=== PATIENT | female | born 1980 | race Caucasian/White ===

== ENCOUNTER 2017-04-04 18:28 | Inpatient (IN) | payer MEDICARE, MEDICAID ==
--- NOTE | 2017-04-04 19:20 | ED Physician Chart ---
Chief Complaint/HPI - Patient Information Date Seen:: 04/04/17 Time Seen:: 18:35 Chief Complaint:: cough History of Present Illness:: 36-year-old female, history of mental retardation with cervical palsy, brought in from nursing facility with acute, constant, moderate, nonproductive, since this morning. Has associated bilateral pedal edema. History limited patient is averbal due to underlying severe mental retardation and cerebral palsy History provided by EMS and caregiver Allergies:: Allergies Allergy/AdvReac Type Severity Reaction Status Date / Time No Known Allergies Allergy Verified 07/26/16 15:12 Vitals:: Vital Signs - 8 hr 04/04/17 18:44 Temp 98.6 F HR 103 RR 19 BP 103/37 O2 Sat % 98 Historian:: EMS, Other (telesales agent) Review:: Nurse's Note Reviewed, EMS run form Reviewed, Transfer documents Reviewed Review of Systems - Review of Systems Other: Complete system review otherwise unremarkable except as noted in history of present illness. Family Medical History - Family Member Mother History Unknown: Yes Ethnicity: Non- Living Status: Unknown Hx Family Cancer: No Hx Family Coronary Artery Disease: No Hx Family Congestive Heart Failure: No Hx Family Hypertension: No Hx Family Stroke: No Hx Family Diabetes: No Hx Family Seizures: No Hx Family Dementia: No Hx Family AIDS: No Hx Family HIV: No Hx Family COPD: No Hx Family Hepatitis: No Hx Family Psychiatric Problems: No Hx Family Tuberculosis: No Physical Exam - Physical Examination Other:: INITIAL VITAL SIGNS: Reviewed by me GENERAL: Patient is lying on gurney HEAD: Head is normocephalic. No evidence of trauma. No scalp or facial swelling EYES: No scleral icterus bilaterally ENT: Oropharynx is clear of exudate and erythema NECK: Supple. No meningismus. No masses. No evidence of trauma. No cervical spine bony step-offs or crepitus to palpation RESPIRATORY: No tachypnea. Clear to auscultation bilaterally. CV: Regular rate and rhythm. No murmurs, rubs, or gallops ABDOMEN: Soft, non-distended. No masses BACK: No ecchymoses. No evidence of trauma EXTREMITIES: Contracted otherwise normal to inspection and palpation. No deformity SKIN: Warm and dry. No obvious rash. No jaundice NEUROLOGIC: Face is symmetric. Withdraws to pain in all extremities Labs/Radiology/EKG Results - Lab Results Results: Lab Results 04/04/17 04/04/17 04/04/17 Range/Units 19:22 19:22 19:22 WBC 6.4 D (4.8-10.8) Th/cmm RBC 3.68 L (3.80-5.10) Mil/cmm Hgb 12.3 (11.7-15.5) gm/dL Hct 36.2 D (35.0-45.0) % MCV 98.5 (81-100) fl MCH 33.5 H (27.0-31.0) pg MCHC Differential 34.0 (28.0-36.0) pg RDW 13.5 (11.5-20.0) % Plt Count 146 L (150-400) Th/cmm MPV 7.5 fl Neutrophils % 52.7 (40.0-80.0) % Lymphocytes % 34.9 (20.0-50.0) % Monocytes % 12.0 H (2.0-10.0) % Eosinophils % 0.4 (0.0-5.0) % Basophils % 0.0 (0.0-2.0) % D-Dimer < 100 L (100-400) ng/mL Sodium 134 L (136-145) mEq/L Potassium 5.2 H (3.5-5.1) mEq/L Chloride 103 (98-107) mEq/L Carbon Dioxide 27.3 (21.0-31.0) mEq/L Anion Gap 8.9 (7.0-16.0) BUN 14 (7-25) mg/dL Creatinine 0.4 L (0.6-1.2) mg/dL Est GFR ( Amer) > 60.0 (>90) ml/min Est GFR (Non-Af Amer) > 60.0 ml/min BUN/Creatinine Ratio 35.0 Glucose 97 (70-105) mg/dL Whole Bld Lactic Acid (0.60-1.99) mmol/L Calcium 10.2 (8.6-10.3) mg/dL Total Bilirubin 0.3 (0.3-1.0) mg/dL AST 12 L (13-39) U/L ALT 3 L (7-52) U/L Alkaline Phosphatase 40 (34-104) U/L B-Natriuretic Peptide 14.0 (5.0-100.0) pg/mL Total Protein 6.0 (6.0-8.3) gm/dL Albumin 3.7 (3.7-5.3) gm/dL Globulin 2.3 gm/dL Albumin/Globulin Ratio 1.6 (1.0-1.8) Urine Source Urine Color Urine Clarity (CLEAR) Urine pH Ur Specific [place] (1.005-1.030) Urine Protein (NEGATIVE) mg/dL Urine Glucose (UA) (NEGATIVE) mg/dL Urine Ketones (NEGATIVE) mg/dL Urine Blood (NEGATIVE) Urine Nitrate (NEGATIVE) Urine Bilirubin (NEGATIVE) Urine Urobilinogen (0.2 - 1.0) E.U./dL Ur Leukocyte Esterase (NEGATIVE) Urine RBC (0-5) /hpf Urine WBC (0-5) /hpf Ur Epithelial Cells (FEW) /lpf Amorphous Sediment (NONE SEEN) Urine Bacteria (NONE SEEN) /hpf 04/04/17 04/04/17 04/04/17 Range/Units 19:22 21:10 21:25 WBC (4.8-10.8) Th/cmm RBC (3.80-5.10) Mil/cmm Hgb (11.7-15.5) gm/dL Hct (35.0-45.0) % MCV (81-100) fl MCH (27.0-31.0) pg MCHC Differential (28.0-36.0) pg RDW (11.5-20.0) % Plt Count (150-400) Th/cmm MPV fl Neutrophils % (40.0-80.0) % Lymphocytes % (20.0-50.0) % Monocytes % (2.0-10.0) % Eosinophils % (0.0-5.0) % Basophils % (0.0-2.0) % D-Dimer (100-400) ng/mL Sodium (136-145) mEq/L Potassium (3.5-5.1) mEq/L Chloride (98-107) mEq/L Carbon Dioxide (21.0-31.0) mEq/L Anion Gap (7.0-16.0) BUN (7-25) mg/dL Creatinine (0.6-1.2) mg/dL Est GFR ( Amer) (>90) ml/min Est GFR (Non-Af Amer) ml/min BUN/Creatinine Ratio Glucose (70-105) mg/dL Whole Bld Lactic Acid 2.48 H* 3.10 H* (0.60-1.99) mmol/L Calcium (8.6-10.3) mg/dL Total Bilirubin (0.3-1.0) mg/dL AST (13-39) U/L ALT (7-52) U/L Alkaline Phosphatase (34-104) U/L B-Natriuretic Peptide (5.0-100.0) pg/mL Total Protein (6.0-8.3) gm/dL Albumin (3.7-5.3) gm/dL Globulin gm/dL Albumin/Globulin Ratio (1.0-1.8) Urine Source CATH Urine Color YELLOW Urine Clarity CLEAR (CLEAR) Urine pH 7.0 Ur Specific [place] 1.015 (1.005-1.030) Urine Protein NEGATIVE (NEGATIVE) mg/dL Urine Glucose (UA) NEGATIVE (NEGATIVE) mg/dL Urine Ketones NEGATIVE (NEGATIVE) mg/dL Urine Blood MODERATE H (NEGATIVE) Urine Nitrate NEGATIVE (NEGATIVE) Urine Bilirubin NEGATIVE (NEGATIVE) Urine Urobilinogen 1.0 (0.2 - 1.0) E.U./dL Ur Leukocyte Esterase NEGATIVE (NEGATIVE) Urine RBC 10-25 H (0-5) /hpf Urine WBC 0-2 (0-5) /hpf Ur Epithelial Cells OCCASIONAL (FEW) /lpf Amorphous Sediment FEW URATES (NONE SEEN) Urine Bacteria 1+ H (NONE SEEN) /hpf - Radiology Results Results: Ultrasound venous Doppler bilateral lower extremities Negative for DVT Single AP VIEW Portable Chest X-ray was interpreted independently and contemporaneously by Yamile Nogueira MD: No cardiomegaly Normal mediastinum No lung infiltrates No pneumothorax No soft tissue or bony abnormalities - EKG Interpretations Comments:: 12-lead EKG Interpretation by Yamile Nogueira MD: Normal Sinus Rhythm with ventricular rate of 82 beats per minute Normal axis Normal intervals No acute ST or T wave changes. No obvious STEMI Assessment - Assessment General Assessment: Critical Care Time: 30 minutes Treatments/Evaluations: Close monitoring and treatment of unstable vital signs, cardiorespiratory, and neurologic status, while maintaining tight balance of fluid, respiratory, and cardiac interventions. This time includes discussing the case with the patient and the patient's family. This time does not include all procedures stated elsewhere in this record. This time also includes reviewing old records, labs and radiological studies. This time includes examining and re-examining the patient. Additionally, this time also includes arranging care with admitting and consulting physicians. Excludes all billable procedures: Yes This condition life threatening/high prob of deterioration: Yes ED Septic Shock - . Is Septic Shock (SBP<90, OR Lactate>4 mmol\L) present?: No - <6hrs of presentation: Vital Signs: Vital Signs - 8 hr 04/04/17 18:44 Temp 98.6 F HR 103 RR 19 BP 103/37 O2 Sat % 98 Reassessment (Disposition) - Reassessment Reassessment:: This is a 36-year-old female for underlying MRCP. Brought in with bilateral lower sinus swelling and cough. Labs indicate rising lactic acid levels. Initial lactic acid level greater than 2. Second lactic acid drawn 2 hours later is now 3.1. This is despite the patient receiving IV antibiotics and IV fluids. Chest x-ray is clear. However, she has only been coughing since today. Possibly she is developed some early pneumonia. It is very difficult to gain a clear history given that she is averbal and has underlying mental disability. Given the rising lactic acid levels and uncertain source, discussed her case with the admitting physician. Patient fitted for possible sepsis unknown etiology. Reassessment Condition:: Unchanged - Diagnosis Diagnosis:: Possible sepsis, unknown etiology Elevated lactic acid levels - Patient Disposition Admitted to:: Telemetry Admitting Medical Physician:: Indira Mcdonald Time:: 22:13 Condition at Disposition:: Improved
[2017-04-04 19:31] LABS: % EOSINOPHILS 0.4 % (0.0-5.0); % LYMPHOCYTES 34.9 % (20.0-50.0); % NEUTROPHILS 52.7 % (40.0-80.0); HEMOGLOBIN 12.3 gm/dL (11.7-15.5); MEAN CELL VOLUME 98.5 fl (81-100); MEAN CORPUSCULAR HEMOGLOBIN 33.5 pg (27.0-31.0); MEAN PLATELET VOLUME 7.5 fl; NEUTROPHILE ABSOLUTE 3.4 Th/cmm (1.8-8.0); PLATELET COUNT 146 Th/cmm (150-400); RED BLOOD COUNT 3.68 Mil/cmm (3.80-5.10); RED CELL DISTRIBUTION WIDTH 13.5 % (11.5-20.0)
[2017-04-04 19:36] LABS: WHITE BLOOD COUNT 6.4 Th/cmm (4.8-10.8)
[2017-04-04 19:37] LABS: HEMATOCRIT 36.2 % (35.0-45.0)
[2017-04-04 19:49] LABS: ALB/GLOB RATIO 1.6 (1.0-1.8); ALKALINE PHOSPHATASE 40 U/L (34-104); ANION GAP 8.9 (7.0-16.0); BILIRUBIN,TOTAL 0.3 mg/dL (0.3-1.0); BUN - UREA NITROGEN 14 mg/dL (7-25); CALCIUM SERUM 10.2 mg/dL (8.6-10.3); CARBON DIOXIDE 27.3 mEq/L (21.0-31.0); CHLORIDE 103 mEq/L (98-107); CREATININE - SERUM 0.4 mg/dL (0.6-1.2); GLUCOSE 97 mg/dL (70-105); POTASSIUM SERUM 5.2 mEq/L (3.5-5.1); SGOT 12 U/L (13-39); SGPT/ALT 3 U/L (7-52); SODIUM SERUM 134 mEq/L (136-145)
[2017-04-04] MEDS ORDERED: cefTRIAXone 1 GM in Sodium Chloride 0.9% 50 ML IV ONE (20:12)
[2017-04-04 21:26] LABS: URINE BACTERIA 1+ /hpf (NONE SEEN); URINE BILIRUBIN NEGATIVE (NEGATIVE); URINE BLOOD MODERATE (NEGATIVE); URINE COLOR YELLOW; URINE EPITHELIAL CELLS OCCASIONAL /lpf (FEW); URINE GLUCOSE (UA) NEGATIVE (NEGATIVE); URINE KETONE NEGATIVE (NEGATIVE); URINE PROTEIN NEGATIVE (NEGATIVE); URINE WBC 0-2 /hpf (0-5)
[2017-04-04 21:27] LABS: URINE AMORPHOUS SEDIMENT FEW URATES (NONE SEEN)
[2017-04-04] MEDS ORDERED: Sodium Chloride 0.9% 1,000 ML IV ONE (21:51)
--- NOTE | 2017-04-05 00:39 | Admit Criteria Form ---
Admit Criteria Forms - Admit Criteria Diagnosis: SEPSIS and OTHER FEBRILE ILLNESS, W/O FOCAL INFECTION Clinical Indications for Admission to Inpatient Care ( Place 'X' for any and all applicable criteria): Admission is indicated for ANY ONE of the following (1)(2)(3)(4): [ ] I. Bacteremia [ X ]II. Suspected or identified specific infection requiring hospitalization (eg, meningitis, endocarditis) [ ]III. Hemodynamic instability [ ]IV. Altered mental status [ ]V. Failure or unavailability of outpatient antimicrobial treatment [ ]. Hypoxemia [ ]VII. Seizures [ ]VIII. High-risk febrile neutropenia [ ]IX. Need for parenteral antibiotic in patient who is likely to abuse vascular access device (eg, injection drug user) [A](7) [ ]X. Temperature greater than 104.9 degrees F (40.5 degrees C) (oral) [ ]XI. Inpatient admission required rather than observation care because of ANY ONE of the following: [ ]1) Specific infection identified that is too severe for outpatient treatment or observation care trial [ ]2) Metabolic disorder (eg, hypoglycemia, hyperglycemia, metabolic acidosis) that is severe or persistent [ ]3) Temperature greater than 103.1 degrees F (39.5 degrees C) ( oral) that is not responsive to observation care treatment [ ]4) IV fluid to replace significant ongoing (eg, for over 24 hours) losses (> 3 L/m2 per day) [ ]5) Supplemental oxygen or respiratory treatments for over 24 hours that is performable only in acute inpatient setting [ ]6) Parenteral nutrition regimen need that must be implemented on inpatient basis [ ]7) Strict or protective (eg, laminar flow) isolation [ ]8) Other condition, treatment or monitoring requiring inpatient admission Extended stay beyond goal length of stay may be needed for(1)(3) [ ]a) Sepsis or septic shock(22) [ ]b) Positive blood cultures [ ]c) Insufficient oral intake [ ]d) High-risk febrile neutropenia(29)(30) [ ]e) Continued fever and clinical instability [ ]f) Clinically active comorbid illness (e.g,heart failure, renal failure , diabetes) The original [facility] [employer] content created by Hari Edurado has been revised. The portions of the content which have been revised are identified through the use of italic text or in bold, and [employer] has neither reviewed nor approved the modified material. All other unmodified content is copyright [facility]. Please see references footnoted in the original [facility] edition 2016 Admit Criteria Met?: Yes
[2017-04-05] MEDS: Sodium Chloride 0.9% 1,000 ML IV SCH ×2 (01:30→14:50)
[2017-04-05 05:46] LABS: % BASOPHILS 0.5 % (0.0-2.0); % EOSINOPHILS 0.6 % (0.0-5.0); % LYMPHOCYTES 38.6 % (20.0-50.0); % MONOCYTES 9.1 % (2.0-10.0); % NEUTROPHILS 51.2 % (40.0-80.0); HEMATOCRIT 34.6 % (35.0-45.0); HEMOGLOBIN 11.8 gm/dL (11.7-15.5); MEAN CELL VOLUME 98.5 fl (81-100); MEAN CORPUSCULAR HEMOGLOBIN 33.6 pg (27.0-31.0); MEAN CORPUSCULAR HGB CONC 34.1 pg (28.0-36.0); MEAN PLATELET VOLUME 7.5 fl; NEUTROPHILE ABSOLUTE 3.1 Th/cmm (1.8-8.0); PLATELET COUNT 128 Th/cmm (150-400); RED BLOOD COUNT 3.51 Mil/cmm (3.80-5.10); RED CELL DISTRIBUTION WIDTH 13.5 % (11.5-20.0); WHITE BLOOD COUNT 6.1 Th/cmm (4.8-10.8)
[2017-04-05 06:08] LABS: ANION GAP 9.5 (7.0-16.0); BUN - UREA NITROGEN 11 mg/dL (7-25); BUN/CREATININE RATIO 36.7; CALCIUM SERUM 9.1 mg/dL (8.6-10.3); CARBON DIOXIDE 24.8 mEq/L (21.0-31.0); CHLORIDE 105 mEq/L (98-107); CREATININE - SERUM 0.3 mg/dL (0.6-1.2); GLUCOSE 81 mg/dL (70-105); POTASSIUM SERUM 4.3 mEq/L (3.5-5.1); SODIUM SERUM 135 mEq/L (136-145)
[2017-04-05 06:09] LABS: ALB/GLOB RATIO 1.7 (1.0-1.8); ALKALINE PHOSPHATASE 37 U/L (34-104); BILIRUBIN,TOTAL 0.2 mg/dL (0.3-1.0); CHOLESTEROL 128 mg/dL (<200); MAGNESIUM 1.7 mg/dL (1.9-2.7); SGOT 13 U/L (13-39); SGPT/ALT 3 U/L (7-52); TRIGLYCERIDES 39 mg/dL (<150)
--- NOTE | 2017-04-05 07:50 | Diagnostic Imaging Report ---
CHEST X-RAY: AP view INDICATION: Cough COMPARISON: Chest x-ray 07/30/2016 FINDINGS: Severe scoliosis is noted. Generalized gaseous distended loops of bowel are noted. No focal consolidation or effusions. Heart size is normal. IMPRESSION: No focal consolidation identified. Generalized gaseous distended loops of bowel possibly representing a generalized ileus. Please correlate clinically Severe scoliosis.
--- NOTE | 2017-04-05 07:51 | Diagnostic Imaging Report ---
Bilateral lower extremity DVT study HISTORY: Swelling and pain COMPARISON: None Technique: Longitudinal and transverse sonographic images of the bilateral lower extremity veins were obtained with doppler analysis. FINDINGS: There is normal compressibility, augmentation and phasicity of the bilateral common femoral, superficial femoral, popliteal, and posterior tibial veins. No thrombus is visualized. IMPRESSION: No evidence of thrombus within the bilateral lower extremity veins.
[2017-04-05] MEDS ORDERED: VTE Chemical Prophylaxis Screen/Admission MC PRN (07:58)
[2017-04-05] MEDS ORDERED: Mag Sulfate 2gm/50mL Premix 2 GM/50 ML BAG IV ONE (08:48)
[2017-04-05] MEDS ORDERED: LYSINE 500 MG PO SCH (09:00)
[2017-04-05] MEDS ORDERED: cefTRIAXone 1 GM in Sodium Chloride 0.9% 50 ML IV SCH (21:00)
[2017-04-06] MEDS: Sodium Chloride 0.9% 1,000 ML IV SCH ×2 (03:48→03:49)
[2017-04-06 06:57] LABS: % BASOPHILS 0.3 % (0.0-2.0); % EOSINOPHILS 0.5 % (0.0-5.0); % LYMPHOCYTES 44.5 % (20.0-50.0); % NEUTROPHILS 40.7 % (40.0-80.0); HEMATOCRIT 35.6 % (35.0-45.0); HEMOGLOBIN 11.8 gm/dL (11.7-15.5); MEAN CELL VOLUME 98.2 fl (81-100); MEAN CORPUSCULAR HEMOGLOBIN 32.6 pg (27.0-31.0); MEAN CORPUSCULAR HGB CONC 33.2 pg (28.0-36.0); MEAN PLATELET VOLUME 8.6 fl; PLATELET COUNT 136 Th/cmm (150-400); RED BLOOD COUNT 3.63 Mil/cmm (3.80-5.10); RED CELL DISTRIBUTION WIDTH 13.5 % (11.5-20.0); WHITE BLOOD COUNT 4.9 Th/cmm (4.8-10.8)
[2017-04-06 08:45] LABS: ANION GAP 8.8 (7.0-16.0); BUN - UREA NITROGEN 9 mg/dL (7-25); CALCIUM SERUM 9.1 mg/dL (8.6-10.3); CARBON DIOXIDE 21.8 mEq/L (21.0-31.0); CHLORIDE 110 mEq/L (98-107); CREATININE - SERUM 0.3 mg/dL (0.6-1.2); GLUCOSE 80 mg/dL (70-105); MAGNESIUM 2.1 mg/dL (1.9-2.7); POTASSIUM SERUM 4.6 mEq/L (3.5-5.1); SODIUM SERUM 136 mEq/L (136-145)
--- NOTE | 2017-04-06 10:41 | Diagnostic Imaging Report ---
CHEST X-RAY: AP view INDICATION: Cough COMPARISON: 04/04/2017 FINDINGS: There is no focal consolidation or pleural effusions The heart is normal in size. Severe scoliosis is noted. Gas distended loops of bowel are seen along the upper abdomen IMPRESSION: No focal consolidation identified. Probable chronic ileus Severe scoliosis.
== END 2017-04-06 11:55 | DRG 194 ==
LOC: ER 18:28 → MSI 23:00 → TELE 23:42
PROVIDERS: ADMIT Internal Medicine; ATTEND Internal Medicine
DX: J18.9 Pneumonia, unspecified organism (principal); F72 Severe intellectual disabilities; G80.9 Cerebral palsy, unspecified; G40.909 Epilepsy, unspecified, not intractable, without status epilepticus
CPT/HCPCS: 36415-UA; 71010-TC; 80048-TC; 80053-TC; 80061-TC; 80164-TC; 81001-TC; 83605; 83735-TC; 83880-TC; 84443-TC; 85025-TC; 85379-TC; 93005; 93970-TC-50; J0696; J3475; J7030; Z7502; Z7610

== ENCOUNTER 2017-08-06 09:39 | Inpatient (IN) | payer MEDICARE, MEDICAID ==
[2017-08-06] MEDS ORDERED: Sodium Chloride 0.9% 500 ML IV ONE (09:59)
--- NOTE | 2017-08-06 10:05 | ED Physician Chart ---
ED Chief Complaint/HPI - Patient Information Date Seen:: 08/06/17 Time Seen:: 09:50 Chief Complaint:: Fever History of Present Illness:: onset x 2 days of fever, cough, congestion, A/N/VD; no report of trauma, H/As, Neck pain, C/P, SOB, Abd. Pain, or urinary s/s Allergies:: Allergies Allergy/AdvReac Type Severity Reaction Status Date / Time No Known Allergies Allergy Verified 07/26/16 15:12 Vitals:: Vital Signs - 8 hr 08/06/17 09:48 Temp 101.7 F HR 150 RR 30 BP 136/69 O2 Sat % 92 ED Review of Systems - Review of Systems General/Constitutional: Fever, No chills, No weight loss, No weakness, No diaphoresis, No edema, No loss of appetite Skin: No skin lesions, No rash, No bruising Head: No headache, No light-headedness Eyes: No loss of vision, No pain, No diplopia ENT: No earache, Nasal drainage, No sore throat, No tinnitus Neck: No neck pain, No swelling, No thyromegaly, No stiffness, No mass noted Cardio Vascular: No chest pain, No palpitations, No PND, No orthopnea, No edema Pulmonary: No SOB, Cough, No sputum, No wheezing GI: Nausea, Vomiting, Diarrhea, No pain, No melena, No hematochezia, No constipation, No hematemesis G/U: No dysuria, No frequency, No hematuria Business Relationship Manager: No vaginal discharge, No abnormal vaginal bleed, No contraction Musculoskeletal: No bone or joint pain, No back pain, No muscle pain Endocrine: No polyuria, No polydipsia Psychiatric: No prior psych history, No depression, No anxiety, No suicidal ideation, No homicidal ideation, No auditory hallucination, No visual hallucination Hematopoietic: No bruising, No lymphadenopathy Allergic/Immuno: No urticaria, No angioedema Neurological: No syncope, No focal symptoms, No weakness, No paresthesia, No headache, No seizure, No dizziness, No confusion, No vertigo ED Past Medical History - Past Medical History Obtainable: Yes Past Medical History: Seizures, Dementia, Other (MR) Family History: Diabetes Melitus, HTN Social History: Non Smoker, No Alcohol, No Drug Use, Single, Care Facility Surgical History: None Psychiatricy History: Dementia Family Medical History - Family Member Mother History Unknown: Yes Ethnicity: Non- Living Status: Unknown Hx Family Cancer: No Hx Family Coronary Artery Disease: No Hx Family Congestive Heart Failure: No Hx Family Hypertension: No Hx Family Stroke: No Hx Family Diabetes: No Hx Family Seizures: No Hx Family Dementia: No Hx Family AIDS: No Hx Family HIV: No Hx Family COPD: No Hx Family Hepatitis: No Hx Family Psychiatric Problems: No Hx Family Tuberculosis: No ED Physical Exam - Physical Examination General/Constitutional: Awake, Well-developed, well-nourished, Alert, No distress, GCS 15, Non-toxic appearing, Ambulatory Head: Atraumatic Eyes: Lids, conjuctiva normal, PERRL, EOMI Skin: Nl inspection, No rash, No skin lesions, No ecchymosis, No lymphadenopathy Other Skin comments:: Poor Turgor with dry mucous membranes ENMT: External ears, nose nl, Nasal exam nl, Lips, teeth, gums nl Neck: Nontender, Full ROM w/o pain, No JVD, No nuchal rigidity, No bruit, No mass, No stridor Respiratory: Nl effort/Exclusion Other Respiratory comments:: Lungs: + Rales Cardio Vascular: RRR, No murmur, gallop, rubs, NL S1 S2 GI: No tenderness/rebounding/guarding, No organomegaly, No hernia, Normal BS's, Nondistended, No mass/bruits, No McBurney tenderness : No CVA tenderness Extremities: No tenderness or effusion, Full ROM, normal strength in all extremities, No edema, Normal digits & nails Neuro/Psych: Alert/oriented, DTR's symmetric, Normal sensory exam, Normal motor strength, Judgement/insight normal, Mood normal, Normal gait, No focal deficits Other Neuro/Psych comments:: pt is nonverbal Misc: Normal back, No paraspinal tenderness ED Labs/Radiology/EKG Results - Lab Results Comments:: Na+: 131; U/A: + Pyuria - Radiology Results Results: + Infiltrate - EKG Interpretations Rate & Rhythm: 148; ST Comments:: non-specific st-t changes ED Septic Shock - . Is Septic Shock (SBP<90, OR Lactate>4 mmol\L) present?: No - <6hrs of presentation: Vital Signs: Vital Signs - 8 hr 08/06/17 09:48 Temp 101.7 F HR 150 RR 30 BP 136/69 O2 Sat % 92 ED Reassessment (Disposition) - Reassessment Reassessment Condition:: Improved - Diagnosis Diagnosis:: PNA; UTI; Sepsis Dehydration; Tachycardia - Aftercare/Follow up Instructions Aftercare/Follow-Up Instructions:: Counseled pt regarding lab results/diagnosis & need follow up, Counseled pt & family regarding lab results/diagnosis & need follow up - Patient Disposition Discharge/Transfer:: Acute Care w/in this hosp Accepting Physician:: Dr. Mcdonald Time Called:: 1100 Time Responded:: 11:00 Admitted to:: Telemetry Spoke to:: Dr. Mcdonald Admitting Medical Physician:: Dr. Mcdonald Condition at Disposition:: Stable, Improved
[2017-08-06 10:25] LABS: HEMOGLOBIN 13.4 gm/dL (12-16); MEAN CELL VOLUME 95.7 fl (81-100); MEAN CORPUSCULAR HEMOGLOBIN 32.8 pg (27.0-31.0); MEAN CORPUSCULAR HGB CONC 34.3 pg (28.0-36.0); PLATELET COUNT 128 Th/cmm (150-400); RED BLOOD COUNT 4.07 Mil/cmm (3.80-5.10); RED CELL DISTRIBUTION WIDTH 13.2 % (11.5-20.0); WHITE BLOOD COUNT 8.2 Th/cmm (4.8-10.8)
[2017-08-06 10:28] LABS: MANUAL DIFF REQUIRED? YES
[2017-08-06] MEDS ORDERED: cefTRIAXone 1 GM in Sodium Chloride 0.9% 50 ML IV ONE (10:30)
[2017-08-06 10:34] LABS: URINE MICROSCOPIC INDICATED? YES; URINE SOURCE MIDSTREAM
[2017-08-06 10:39] LABS: INR 1.15 (0.5-1.4); PROTHROMBIN TIME (TEST) 12.1 SECONDS (9.5-11.5)
[2017-08-06 10:40] LABS: URINE BILIRUBIN NEGATIVE (NEGATIVE); URINE BLOOD SMALL (NEGATIVE); URINE GLUCOSE (UA) NEGATIVE (NEGATIVE); URINE KETONE TRACE mg/dL (NEGATIVE); URINE LEUKOCYTE ESTERASE NEGATIVE (NEGATIVE); URINE NITRATE NEGATIVE (NEGATIVE); URINE PROTEIN 100 mg/dL (NEGATIVE)
[2017-08-06 10:44] LABS: ALB/GLOB RATIO 1.5 (1.0-1.8); ALBUMIN 3.5 gm/dL (3.7-5.3); ALKALINE PHOSPHATASE 34 U/L (34-104); ANION GAP 11.7 (7.0-16.0); BILIRUBIN,TOTAL 0.3 mg/dL (0.3-1.0); BUN - UREA NITROGEN 12 mg/dL (7-25); CALCIUM SERUM 9.2 mg/dL (8.6-10.3); CARBON DIOXIDE 24.2 mEq/L (21.0-31.0); CHLORIDE 99 mEq/L (98-107); CREATININE - SERUM 0.4 mg/dL (0.6-1.2); CREATININE KINASE 15 U/L (30-223); GFR AFRICAN-AMERICAN > 60.0 ml/min (>90); GFR NON AFRICAN-AMERICAN > 60.0 ml/min; GLUCOSE 99 mg/dL (70-105); POTASSIUM SERUM 3.9 mEq/L (3.5-5.1); SGOT 12 U/L (13-39); SGPT/ALT 8 U/L (7-52); SODIUM SERUM 131 mEq/L (136-145); TOTAL PROTEIN,SERUM 5.9 gm/dL (6.0-8.3)
[2017-08-06 10:45] LABS: AMYLASE SERUM 56 U/L (29-103); LIPASE 18 U/L (11-82)
[2017-08-06 10:50] LABS: TROP I < 0.01 ng/mL (0.01-0.05)
[2017-08-06 10:52] LABS: URINE CLARITY CLEAR (CLEAR); URINE COLOR YELLOW
[2017-08-06 10:58] LABS: URINE EPITHELIAL CELLS MODERATE /lpf (FEW); URINE WBC 0-2 /hpf (0-5)
[2017-08-06 10:59] LABS: URINE BACTERIA 1+ /hpf (NONE SEEN)
[2017-08-06 11:06] LABS: BAND NEUTROPHILE 28 % (0-10); LYMPHOCYTE 7 % (20-50); METAMYELOCYTE 2 % (0-0); MONOCYTE 18 % (2-10); NEUTROPHILS 45 % (40-80); TOTAL CELLS COUNTED 100
[2017-08-06 11:07] LABS: ANISOCYTOSIS 1+; PLATELET ESTIMATE SLIGHT DECREASED (NORMAL)
[2017-08-06] MEDS ORDERED: Albuterol/Ipratropium Neb 3 ML AERS HHN ONE (12:07)
[2017-08-06] MEDS: Albuterol/Ipratropium Neb 3 ML AERS HHN SCH ×4 (12:09→23:20)
[2017-08-06] MEDS ORDERED: Sodium Chloride 0.9% 1,000 ML IV ONE (12:48)
[2017-08-06] MEDS: cefTRIAXone 1 GM in Sodium Chloride 0.9% 50 ML IV SCH (13:02)
[2017-08-06] MEDS: Azithromycin 500 MG in Sodium Chloride 0.9% 250 ML IV SCH (15:31)
[2017-08-06] MEDS: Sodium Chloride 0.9% 1,000 ML IV SCH (17:15)
--- NOTE | 2017-08-06 23:27 | History & Physical ---
ADMIT DATE: 08/06/2017 CHIEF COMPLAINT: The patient came in because of cough. HISTORY OF PRESENT ILLNESS: This is a 36-year-old female with past medical history of epilepsy, who came in because of cough and congestion. Two days prior to admission, the patient developed cough and congestion. A few hours prior to admission, she continued to have fever. Thus, she was brought to the Emergency Room. Her temperature was 101.7, in sinus tachycardic. Lactic acid was 2.43, but her white count was 8.2. Chest x-ray revealed infiltrates. Cultures were obtained and she was started on Rocephin and Flomax. She has no nausea and vomiting as well as diarrhea. PAST MEDICAL HISTORY: 1. Epilepsy. 2. Dementia with behavioral disturbance. 3. Intellectual disability. MEDICATIONS: She is currently on acetaminophen, albuterol/ipratropium, azithromycin, ceftriaxone, vancomycin. ALLERGIES: No known drug allergies. SOCIAL AND FAMILY HISTORY: I was not able to obtain directly from the patient because she is nonverbal. REVIEW OF SYSTEMS: Again, I was not able to decipher from the patient. PHYSICAL EXAMINATION: GENERAL: The patient is stuporous, but arousable, not in any distress. VITAL SIGNS: Her blood pressure is 122/68, pulse is 120, temperature 99.8 degrees. SKIN: Poor turgor, warm. No rash, no jaundice appreciated. HEENT: Head: Normocephalic, atraumatic. Eyes: Unable to assess her extraocular muscles. Pupils are equal, round, reactive to light and accommodate. Anicteric sclerae. Pale conjunctivae. Nose: Midline nasal septum. Mouth: Dry mucosa. Adequate dentition. NECK: Supple. No adenopathy. No thyromegaly. No bruits. Trachea palpated in the midline. CHEST AND CARDIOVASCULAR: S1, S2. No rub, murmur nor gallop appreciated. Point of maximal impulse in fifth intercostal space, left midclavicular line. No abdominal or femoral bruits appreciated. LUNGS: Equal expansion. No use of accessory muscles. No supraclavicular retraction. Scattered rhonchi. Few rales, but no wheezes appreciated. BREASTS: Symmetrical without any discharge. ABDOMEN: Flat, soft. Positive for bowel sounds. No bruits, either diastolic or systolic. RECTAL: Deferred. GENITOURINARY: Normal-appearing female genitalia. MUSCULOSKELETAL: No effusions present in her joints, but unable to assess her range of motion. EXTREMITIES: She has contracted upper extremity as well as lower extremity. She also has bilateral foot drop. There is no edema. No cyanosis appreciated. She has an adequate femoral, but unable to fully appreciate popliteal and dorsalis pedis pulses due to her contractures. NEUROLOGIC: The patient remains stuporous, so I was unable to pursue further my neuro exam. LABORATORY DATA: White count 8.2, hemoglobin 13.4, hematocrit 39, platelets 128, polys 45%. Sodium 131, potassium 3.9, chloride 99, bicarbonate 24, BUN 12, creatinine 0.4, glucose 99. Lactic acid 2.46. Troponin less than 0.01. Albumin 3.5. IMPRESSION: 1. Fever with cough and congestion, possible community-acquired pneumonia. 2. Sinus tachycardic secondary to sepsis. 3. Epilepsy. 4. Dementia with behavioral disturbance. 5. Intellectual disability. PLAN: 1. IV fluids. 2. Follow up cultures. 3. Continue with Rocephin and Zithromax. 4. Add vancomycin. 5. Continue to monitor for any febrile episodes and use antipyretics. JOB# [id number]
[2017-08-07] MEDS: Albuterol/Ipratropium Neb 3 ML AERS HHN SCH ×6 (03:15→23:00)
[2017-08-07] MEDS: Sodium Chloride 0.9% 1,000 ML IV SCH (05:13)
[2017-08-07 05:18] LABS: % EOSINOPHILS 0.1 % (0.0-5.0); % LYMPHOCYTES 16.7 % (20.0-50.0); % MONOCYTES 12.1 % (2.0-10.0); % NEUTROPHILS 71.1 % (40.0-80.0); LYMPHOCYTE ABSOLUTE 1.6 Th/cmm (1.5-3.0); MEAN CELL VOLUME 97.9 fl (81-100); MEAN CORPUSCULAR HEMOGLOBIN 33.2 pg (27.0-31.0); MEAN CORPUSCULAR HGB CONC 33.9 pg (28.0-36.0); MEAN PLATELET VOLUME 8.5 fl; MONOCYTE ABSOLUTE 1.1 Th/cmm (0.3-1.0); NEUTROPHILE ABSOLUTE 6.8 Th/cmm (1.8-8.0); RED CELL DISTRIBUTION WIDTH 12.7 % (11.5-20.0); WHITE BLOOD COUNT 9.5 Th/cmm (4.8-10.8)
[2017-08-07 05:34] LABS: HEMATOCRIT 31.3 % (41.0-60); HEMOGLOBIN 10.6 gm/dL (12-16)
[2017-08-07 05:35] LABS: PLATELET COUNT 99 Th/cmm (150-400)
[2017-08-07 05:43] LABS: ANION GAP 9.7 (7.0-16.0); BUN - UREA NITROGEN 5 mg/dL (7-25); CALCIUM SERUM 8.4 mg/dL (8.6-10.3); CHLORIDE 108 mEq/L (98-107); CREATININE - SERUM 0.3 mg/dL (0.6-1.2); GFR AFRICAN-AMERICAN > 60.0 ml/min (>90); GFR NON AFRICAN-AMERICAN > 60.0 ml/min; GLUCOSE 89 mg/dL (70-105); MAGNESIUM 1.5 mg/dL (1.9-2.7); PHOSPHOROUS 1.9 mg/dL (2.5-5.0); POTASSIUM SERUM 3.7 mEq/L (3.5-5.1); SODIUM SERUM 138 mEq/L (136-145)
[2017-08-07] MEDS ORDERED: Potassium Phosphate 30 MMOLE in Sodium Chloride 0.9% 250 ML IV ONE (08:57)
[2017-08-07] MEDS ORDERED: Mag Sulfate 2gm/50mL Premix 2 GM/50 ML BAG IV ONE (09:06)
--- NOTE | 2017-08-07 10:04 | Diagnostic Imaging Report ---
Portable chest x-ray HISTORY: Cough, fever There is a severe scoliosis of the thoracic spine convexity to the right. No focal bony processes. Heart size difficult to assess. IMPRESSION: 1. No acute focal pulmonary processes 2. Severe scoliosis
[2017-08-07] MEDS: cefTRIAXone 1 GM in Sodium Chloride 0.9% 50 ML IV SCH (12:52)
[2017-08-07] MEDS: Azithromycin 500 MG in Sodium Chloride 0.9% 250 ML IV SCH (13:49)
[2017-08-08] MEDS: Sodium Chloride 0.9% 1,000 ML IV SCH ×2 (01:24→11:55)
[2017-08-08] MEDS: Albuterol/Ipratropium Neb 3 ML AERS HHN SCH ×6 (04:00→23:01)
[2017-08-08 06:40] LABS: MAGNESIUM 1.9 mg/dL (1.9-2.7); PHOSPHOROUS 2.6 mg/dL (2.5-5.0)
[2017-08-08] MEDS: cefTRIAXone 1 GM in Sodium Chloride 0.9% 50 ML IV SCH (12:19)
[2017-08-08] MEDS: Azithromycin 500 MG in Sodium Chloride 0.9% 250 ML IV SCH (13:08)
[2017-08-09] MEDS: Albuterol/Ipratropium Neb 3 ML AERS HHN SCH ×3 (02:40→11:31)
[2017-08-09] MEDS: Sodium Chloride 0.9% 1,000 ML IV SCH (03:16)
[2017-08-09 06:18] LABS: % BASOPHILS 0.3 % (0.0-2.0); % LYMPHOCYTES 38.1 % (20.0-50.0); % MONOCYTES 14.9 % (2.0-10.0); % NEUTROPHILS 44.7 % (40.0-80.0); EOSINOPHILE ABSOLUTE 0.1 Th/cmm (0.1-0.4); HEMATOCRIT 31.7 % (41.0-60); HEMOGLOBIN 10.7 gm/dL (12-16); LYMPHOCYTE ABSOLUTE 2.1 Th/cmm (1.5-3.0); MEAN CELL VOLUME 97.1 fl (81-100); MEAN CORPUSCULAR HEMOGLOBIN 32.8 pg (27.0-31.0); MEAN CORPUSCULAR HGB CONC 33.8 pg (28.0-36.0); MEAN PLATELET VOLUME 8.2 fl; MONOCYTE ABSOLUTE 0.8 Th/cmm (0.3-1.0); NEUTROPHILE ABSOLUTE 2.4 Th/cmm (1.8-8.0); RED BLOOD COUNT 3.26 Mil/cmm (3.80-5.10); RED CELL DISTRIBUTION WIDTH 13.2 % (11.5-20.0)
[2017-08-09 06:25] LABS: PLATELET COUNT 153 Th/cmm (150-400); WHITE BLOOD COUNT 5.4 Th/cmm (4.8-10.8)
[2017-08-09 06:32] LABS: ANION GAP 8.9 (7.0-16.0); BUN - UREA NITROGEN 4 mg/dL (7-25); CALCIUM SERUM 9.2 mg/dL (8.6-10.3); CARBON DIOXIDE 27.8 mEq/L (21.0-31.0); CHLORIDE 105 mEq/L (98-107); CREATININE - SERUM 0.3 mg/dL (0.6-1.2); GFR AFRICAN-AMERICAN > 60.0 ml/min (>90); GFR NON AFRICAN-AMERICAN > 60.0 ml/min; GLUCOSE 83 mg/dL (70-105); MAGNESIUM 1.7 mg/dL (1.9-2.7); POTASSIUM SERUM 4.7 mEq/L (3.5-5.1); SODIUM SERUM 137 mEq/L (136-145)
--- NOTE | 2017-08-09 09:13 | Diagnostic Imaging Report ---
Portable chest x-ray HISTORY: Shortness of breath Compared with prior exam of July 29, 2017, no focal pulmonary processes. Severe scoliosis again noted. IMPRESSION: 1. No focal pulmonary processes
[2017-08-09] MEDS: cefTRIAXone 1 GM in Sodium Chloride 0.9% 50 ML IV SCH (11:53)
[2017-08-09] MEDS: Azithromycin 500 MG in Sodium Chloride 0.9% 250 ML IV SCH (12:31)
--- NOTE | 2017-08-09 23:13 | Discharge Summary ---
DATE OF DISCHARGE: 08/09/2017 ADMITTING DIAGNOSES: Fever/rule out sepsis, tachycardia, hyponatremia, elevated lactic acid level, cough/congestion, rule out bronchitis versus early pneumonia. SECONDARY DIAGNOSES: History of dementia with behavioral disturbance, intellectual disability/mental retardation, history of epilepsy. DISCHARGE DIAGNOSES: 1. Fever, rule out sepsis. Sepsis workup negative. Likely 2ry to bronchitis. 2. Sinus tachycardia, secondary to above-resolved. 3. Hyponatremia, resolved. 4. Elevated lactic acid, resolved. 5. Likely bronchitis versus early pneumonia-clinically improved. CONSULTANTS: There are no consultants used during this admission. MAJOR PROCEDURES: There were no major procedures done during this admission. BRIEF HOSPITAL COURSE: A 36-year-old female who presented from an extended care facility with 2-day history of congestive cough, tachycardia, and fevers up to 101.7. In the ER, she was noted to have a lactic acid of 2.43 and she was also noted to have tachycardia from 120-150. Other pertinent findings included sodium 131 and UA showing some red blood cells, but negative for leukocyte esterase and nitrites. A chest x-ray showed no focal pulmonary processes. She was admitted to the telemetry rouse, placed on IV fluids, empiric IV antibiotics (azithromycin and Rocephin), and pulmonary toilet. She was pancultured with results being negative. She did have Staph aureus on the nares. By hospital day #2, her heart rate had improved to a level of 90s to low 100s and her fevers had improved. Her labs remained basically stable throughout her hospital stay with improvement of her low sodium to a level of 138 by 08/07/2017 and her lactic acid level to 1.03 by 08/07/2017. Initially this level was noted to be 2.43. A repeat x-ray done on 08/06/2017 showed no acute pulmonary processes. DISCHARGE MEDICATIONS: Tylenol 325 per rectum q. 4 hours p.r.n. for fever or pain, DuoNeb q. 4 hours while awake and p.r.n., Levaquin 500 mg p.o. every day x7 days, Mucinex 600 q.12h. p.r.n. for congestion, Bactroban ointment b.i.d. x 5 more days, Depakote 500 mg b.i.d., Lamictal 75 every day, lysine 500 mg b.i.d., Megace 10 mL b.i.d. and multivitamins every day. CONDITION ON DISCHARGE: Stable. DISPOSITION: The patient was discharged back to [facility] under the care of Dr. Serrano. JOB# [id number] MTDD
== END 2017-08-09 13:46 | disposition home or self-care (01) | DRG 202 ==
LOC: ER 09:39 → TELE 11:13 → MSI 08-07 12:16 → TELE 08-07 12:24
PROVIDERS: ADMIT Internal Medicine; ATTEND Internal Medicine
DX: J40 Bronchitis, not specified as acute or chronic (principal); J18.9 Pneumonia, unspecified organism; F03.91 Unspecified dementia, unspecified severity, with behavioral disturbance; E87.1 Hypo-osmolality and hyponatremia; E44.1 Mild protein-calorie malnutrition; N39.0 Urinary tract infection, site not specified; B95.62 Methicillin resistant Staphylococcus aureus infection as the cause of diseases classified elsewhere; G40.909 Epilepsy, unspecified, not intractable, without status epilepticus; F79 Unspecified intellectual disabilities; R00.0 Tachycardia, unspecified; E86.0 Dehydration; Z83.3 Family history of diabetes mellitus; Z82.49 Family history of ischemic heart disease and other diseases of the circulatory system
CPT/HCPCS: 36415-UA; 71010-TC; 80048-TC; 80053-TC; 81001-TC; 81025-TC; 82150-TC; 82550-TC; 82948-90; 83605; 83690-TC; 83735-TC; 84100-TC; 84484-TC; 84703-TC; 85007-TC; 85025-TC; 85027-TC; 85610-TC; 85730-TC; 87070; 87086-90; 90799; 93005; 94640; 94760; J0456; J0696; J3370; J3475; J7030; Z7610

== ENCOUNTER 2017-11-02 12:09 | Inpatient (IN) | payer MEDICARE, MEDICAID ==
[2017-11-02] MEDS ORDERED: Sodium Chloride 0.9% 500 ML IV ONE (12:34)
[2017-11-02 13:11] LABS: % LYMPHOCYTES 3.5 % (20.0-50.0); % MONOCYTES 12.6 % (2.0-10.0); % NEUTROPHILS 83.9 % (40.0-80.0); HEMATOCRIT 36.2 % (41.0-60); HEMOGLOBIN 12.4 gm/dL (12-16); LYMPHOCYTE ABSOLUTE 0.5 Th/cmm (1.5-3.0); MEAN CELL VOLUME 95.2 fl (81-100); MEAN CORPUSCULAR HEMOGLOBIN 32.5 pg (27.0-31.0); MEAN CORPUSCULAR HGB CONC 34.2 pg (28.0-36.0); MEAN PLATELET VOLUME 8.1 fl; MONOCYTE ABSOLUTE 1.8 Th/cmm (0.3-1.0); NEUTROPHILE ABSOLUTE 11.8 Th/cmm (1.8-8.0); PLATELET COUNT 160 Th/cmm (150-400); RED CELL DISTRIBUTION WIDTH 14.1 % (11.5-20.0)
[2017-11-02 13:17] LABS: WHITE BLOOD COUNT 14.1 Th/cmm (4.8-10.8)
[2017-11-02] MEDS ORDERED: cefTRIAXone 1 GM in Sodium Chloride 0.9% 50 ML IV ONE (13:20)
[2017-11-02] MEDS ORDERED: Azithromycin 500 MG in Sodium Chloride 0.9% 250 ML IV ONE (13:20)
[2017-11-02 13:25] LABS: INR 1.15 (0.5-1.4); PROTHROMBIN TIME (TEST) 12.1 SECONDS (9.5-11.5)
[2017-11-02 13:37] LABS: ALB/GLOB RATIO 1.8 (1.0-1.8); ALBUMIN 3.7 gm/dL (3.7-5.3); ALKALINE PHOSPHATASE 41 U/L (34-104); ANION GAP 12.1 (7.0-16.0); BILIRUBIN,TOTAL 0.2 mg/dL (0.3-1.0); BUN - UREA NITROGEN 18 mg/dL (7-25); CALCIUM SERUM 9.2 mg/dL (8.6-10.3); CARBON DIOXIDE 23.8 mEq/L (21.0-31.0); CHLORIDE 100 mEq/L (98-107); CREATININE - SERUM 0.4 mg/dL (0.6-1.2); CREATININE KINASE 20 U/L (30-223); GFR AFRICAN-AMERICAN > 60.0 ml/min (>90); GFR NON AFRICAN-AMERICAN > 60.0 ml/min; GLUCOSE 107 mg/dL (70-105); POTASSIUM SERUM 3.9 mEq/L (3.5-5.1); SGOT 18 U/L (13-39); SGPT/ALT 10 U/L (7-52); SODIUM SERUM 132 mEq/L (136-145); TOTAL PROTEIN,SERUM 5.8 gm/dL (6.0-8.3)
[2017-11-02 13:40] LABS: TROP I < 0.01 ng/mL (0.01-0.05)
[2017-11-02 13:49] LABS: URINE MICROSCOPIC INDICATED? YES; URINE SOURCE MIDSTREAM
[2017-11-02 13:51] LABS: URINE BILIRUBIN NEGATIVE (NEGATIVE); URINE BLOOD MODERATE (NEGATIVE); URINE GLUCOSE (UA) NEGATIVE (NEGATIVE); URINE KETONE NEGATIVE (NEGATIVE); URINE LEUKOCYTE ESTERASE NEGATIVE (NEGATIVE); URINE NITRATE NEGATIVE (NEGATIVE); URINE PROTEIN TRACE mg/dL (NEGATIVE); URINE UROBILINOGEN 0.2 E.U./dL (0.2 - 1.0)
[2017-11-02 13:52] LABS: URINE CLARITY CLEAR (CLEAR); URINE COLOR YELLOW
[2017-11-02 13:58] LABS: URINE BACTERIA 2+ /hpf (NONE SEEN); URINE EPITHELIAL CELLS MODERATE /lpf (FEW)
--- NOTE | 2017-11-02 14:49 | ED Physician Chart ---
ED Chief Complaint/HPI - Patient Information Date Seen:: 11/02/17 Time Seen:: 12:35 Chief Complaint:: Fever History of Present Illness:: onset x 3 days of fever, cough, congestion, AMS, ALOC, and weakness; no report of trauma, H/As, S/T, neck pain, C/P, SOB, Abd. Pain, A/N/V/D/C, chills, or urinary s/s Allergies:: Allergies Allergy/AdvReac Type Severity Reaction Status Date / Time No Known Allergies Allergy Verified 09/11/17 18:10 Vitals:: Vital Signs - 8 hr 11/02/17 12:37 Temp 101 F HR 125 RR 16 BP 115/61 O2 Sat % 94 Historian:: Patient, EMS Review:: Nurse's Note Reviewed, EMS run form Reviewed ED Review of Systems - Review of Systems General/Constitutional: Fever, No chills, No weight loss, No weakness, No diaphoresis, No edema, No loss of appetite Skin: No skin lesions, No rash, No bruising Head: No headache, No light-headedness Eyes: No loss of vision, No pain, No diplopia ENT: No earache, Nasal drainage, No sore throat, No tinnitus Neck: No neck pain, No swelling, No thyromegaly, No stiffness, No mass noted Cardio Vascular: No chest pain, No palpitations, No PND, No orthopnea, No edema Pulmonary: No SOB, Cough, No sputum, No wheezing GI: No nausea, No vomiting, No diarrhea, No pain, No melena, No hematochezia, No constipation, No hematemesis G/U: No dysuria, No frequency, No hematuria, No nacturia Heel Lift Gouger: No vaginal discharge, No abnormal vaginal bleed, No contraction Musculoskeletal: No bone or joint pain, No back pain, No muscle pain Endocrine: No polyuria, No polydipsia Psychiatric: No prior psych history, No depression, No anxiety, No suicidal ideation, No homicidal ideation, No auditory hallucination, No visual hallucination Hematopoietic: No bruising, No lymphadenopathy Allergic/Immuno: No urticaria, No angioedema Neurological: No syncope, Focal symptoms, Weakness, No paresthesia, No headache , No seizure, No dizziness, Confusion, No vertigo ED Past Medical History - Past Medical History Obtainable: Yes Past Medical History: CVA/TIA, Dementia, Other (Quadripareasis) Family History: Diabetes Melitus, HTN Social History: Non Smoker, No Alcohol, No Drug Use, Single, Care Facility Surgical History: None Psychiatricy History: Dementia Medication: Reviewed Family Medical History - Family Member Mother History Unknown: Yes Ethnicity: Non- Living Status: Unknown Hx Family Cancer: No Hx Family Coronary Artery Disease: No Hx Family Congestive Heart Failure: No Hx Family Hypertension: No Hx Family Stroke: No Hx Family Diabetes: No Hx Family Seizures: No Hx Family Dementia: No Hx Family AIDS: No Hx Family HIV: No Hx Family COPD: No Hx Family Hepatitis: No Hx Family Psychiatric Problems: No Hx Family Tuberculosis: No ED Physical Exam - Physical Examination General/Constitutional: Awake, Well-developed, well-nourished, Alert, No distress, GCS 15, Non-toxic appearing, Ambulatory Head: Atraumatic Eyes: Lids, conjuctiva normal, PERRL, EOMI Skin: Nl inspection, No rash, No skin lesions, No ecchymosis, Well hydrated, No lymphadenopathy ENMT: External ears, nose nl, TM canals nl, Nasal exam nl, Lips, teeth, gums nl , Oropharynx nl, Tonsils nl Neck: Nontender, Full ROM w/o pain, No JVD, No nuchal rigidity, No bruit, No mass, No stridor Respiratory: Nl effort/Exclusion Other Respiratory comments:: Lungs: + rales and Rhonchi Cardio Vascular: RRR, No murmur, gallop, rubs, NL S1 S2, Carotid/Femoral/Distal pulses equal bilaterally GI: No tenderness/rebounding/guarding, No organomegaly, No hernia, Normal BS's, Nondistended, No mass/bruits, No McBurney tenderness : No CVA tenderness Extremities: No tenderness or effusion, Full ROM, normal strength in all extremities, No edema, Normal digits & nails Neuro/Psych: Alert/oriented, DTR's symmetric, Normal sensory exam, Normal motor strength, Judgement/insight normal, Mood normal, Normal gait Other Neuro/Psych comments:: + quadiplegia Misc: Normal back, No paraspinal tenderness ED Labs/Radiology/EKG Results - Lab Results Results: Laboratory Tests 11/02/17 11/02/17 11/02/17 12:50 12:50 12:50 WBC 14.1 H D RBC 3.80 Hgb 12.4 Hct 36.2 L MCV 95.2 MCH 32.5 H MCHC Differential 34.2 RDW 14.1 Plt Count 160 D MPV 8.1 Neutrophils % 83.9 H Lymphocytes % 3.5 L Monocytes % 12.6 H Eosinophils % 0.0 Basophils % 0.0 PT 12.1 H INR 1.15 PTT (Actin FS) 30.5 Sodium 132 L Potassium 3.9 Chloride 100 Carbon Dioxide 23.8 Anion Gap 12.1 BUN 18 Creatinine 0.4 L Est GFR ( Amer) > 60.0 Est GFR (Non-Af Amer) > 60.0 BUN/Creatinine Ratio 45.0 Glucose 107 H Whole Bld Lactic Acid Calcium 9.2 Total Bilirubin 0.2 L AST 18 ALT 10 Alkaline Phosphatase 41 Creatine Kinase 20 L Troponin I Total Protein 5.8 L Albumin 3.7 Globulin 2.1 Albumin/Globulin Ratio 1.8 Serum , Qual Urine Source Urine Color Urine Clarity Urine pH Ur Specific [place] Urine Protein Urine Glucose (UA) Urine Ketones Urine Blood Urine Nitrate Urine Bilirubin Urine Urobilinogen Ur Leukocyte Esterase Urine RBC Urine WBC Ur Epithelial Cells Urine Bacteria Valproic Acid 11/02/17 11/02/17 11/02/17 12:50 12:50 12:50 WBC RBC Hgb Hct MCV MCH MCHC Differential RDW Plt Count MPV Neutrophils % Lymphocytes % Monocytes % Eosinophils % Basophils % PT INR PTT (Actin FS) Sodium Potassium Chloride Carbon Dioxide Anion Gap BUN Creatinine Est GFR ( Amer) Est GFR (Non-Af Amer) BUN/Creatinine Ratio Glucose Whole Bld Lactic Acid 2.43 H* Calcium Total Bilirubin AST ALT Alkaline Phosphatase Creatine Kinase Troponin I < 0.01 L Total Protein Albumin Globulin Albumin/Globulin Ratio Serum , Qual NEGATIVE Urine Source Urine Color Urine Clarity Urine pH Ur Specific [place] Urine Protein Urine Glucose (UA) Urine Ketones Urine Blood Urine Nitrate Urine Bilirubin Urine Urobilinogen Ur Leukocyte Esterase Urine RBC Urine WBC Ur Epithelial Cells Urine Bacteria Valproic Acid 157.1 H 11/02/17 13:20 WBC RBC Hgb Hct MCV MCH MCHC Differential RDW Plt Count MPV Neutrophils % Lymphocytes % Monocytes % Eosinophils % Basophils % PT INR PTT (Actin FS) Sodium Potassium Chloride Carbon Dioxide Anion Gap BUN Creatinine Est GFR ( Amer) Est GFR (Non-Af Amer) BUN/Creatinine Ratio Glucose Whole Bld Lactic Acid Calcium Total Bilirubin AST ALT Alkaline Phosphatase Creatine Kinase Troponin I Total Protein Albumin Globulin Albumin/Globulin Ratio Serum , Qual Urine Source [place] Urine Color YELLOW Urine Clarity CLEAR Urine pH 6.0 Ur Specific [place] 1.010 Urine Protein TRACE Urine Glucose (UA) NEGATIVE Urine Ketones NEGATIVE Urine Blood MODERATE H Urine Nitrate NEGATIVE Urine Bilirubin NEGATIVE Urine Urobilinogen 0.2 Ur Leukocyte Esterase NEGATIVE Urine RBC 5-10 H Urine WBC 2-5 Ur Epithelial Cells MODERATE Urine Bacteria 2+ H Valproic Acid Comments:: WBC: 14.1; Na+: 132; U/A: + Pyuria - Radiology Results Comments:: CXR: + Infiltrate - EKG Interpretations EKG Time:: 12:47 Rate & Rhythm: 125; ST Comments:: non-specific st-t changes ED Septic Shock - . Is Septic Shock (SBP<90, OR Lactate>4 mmol\L) present?: No - <6hrs of presentation: Vital Signs: Vital Signs - 8 hr 11/02/17 12:37 Temp 101 F HR 125 RR 16 BP 115/61 O2 Sat % 94 ED Reassessment (Disposition) - Reassessment Reassessment Condition:: Improved - Diagnosis Diagnosis:: Fever; Cough; Pneumonia; Sepsis; UTI; Urosepsis - Aftercare/Follow up Instructions Aftercare/Follow-Up Instructions:: Counseled pt regarding lab results/diagnosis & need follow up, Counseled pt & family regarding lab results/diagnosis & need follow up - Patient Disposition Discharge/Transfer:: Acute Care w/in this hosp Accepting Physician:: Dr. Mcdonald Time Called:: 1430 Time Responded:: 14:30 Admitted to:: Med/Surg Spoke to:: Dr. Mcdonald Admitting Medical Physician:: Dr. Mcdonald Condition at Disposition:: Stable, Improved
--- NOTE | 2017-11-02 15:19 | Diagnostic Imaging Report ---
CHEST X-RAY: AP view INDICATION: Cough, fever COMPARISON: 09/12/2017 FINDINGS: Exam is limited due to body habitus. Increased interstitial lung markings are noted with no focal consolidation or effusions. Heart size is at the upper limits of normal. Severe scoliosis is noted. Generalized gas-distended also bowel are noted. IMPRESSION: Limited exam due to body habitus and severe scoliosis. Increased interstitial lung markings are noted likely chronic. A marginal degree of congestion is considered less likely. No focal consolidation identified Probable ileus.
[2017-11-02] MEDS: Sodium Chloride 0.9% 1,000 ML IV SCH (15:48)
[2017-11-02] MEDS: Albuterol/Ipratropium Neb 3 ML AERS HHN SCH ×2 (19:19→22:33)
[2017-11-03] MEDS: Sodium Chloride 0.9% 1,000 ML IV SCH ×3 (01:50→21:37)
[2017-11-03] MEDS: Albuterol/Ipratropium Neb 3 ML AERS HHN SCH ×6 (02:35→23:29)
[2017-11-03 07:05] LABS: % EOSINOPHILS 0.1 % (0.0-5.0); % MONOCYTES 13.4 % (2.0-10.0); % NEUTROPHILS 72.5 % (40.0-80.0); LYMPHOCYTE ABSOLUTE 1.5 Th/cmm (1.5-3.0); MEAN CELL VOLUME 96.1 fl (81-100); MEAN CORPUSCULAR HEMOGLOBIN 32.8 pg (27.0-31.0); MEAN CORPUSCULAR HGB CONC 34.2 pg (28.0-36.0); MEAN PLATELET VOLUME 8.2 fl; MONOCYTE ABSOLUTE 1.4 Th/cmm (0.3-1.0); NEUTROPHILE ABSOLUTE 7.6 Th/cmm (1.8-8.0); RED BLOOD COUNT 3.05 Mil/cmm (3.80-5.10); RED CELL DISTRIBUTION WIDTH 14.3 % (11.5-20.0)
[2017-11-03 07:08] LABS: HEMATOCRIT 29.3 % (41.0-60); PLATELET COUNT 118 Th/cmm (150-400); WHITE BLOOD COUNT 10.5 Th/cmm (4.8-10.8)
[2017-11-03 07:17] LABS: ALB/GLOB RATIO 1.6 (1.0-1.8); ALKALINE PHOSPHATASE 33 U/L (34-104); BILIRUBIN,TOTAL 0.1 mg/dL (0.3-1.0); BUN - UREA NITROGEN 8 mg/dL (7-25); CALCIUM SERUM 7.9 mg/dL (8.6-10.3); CHLORIDE 111 mEq/L (98-107); CREATININE - SERUM 0.2 mg/dL (0.6-1.2); GFR AFRICAN-AMERICAN > 60.0 ml/min (>90); GFR NON AFRICAN-AMERICAN > 60.0 ml/min; GLUCOSE 90 mg/dL (70-105); MAGNESIUM 1.9 mg/dL (1.9-2.7); SGOT 18 U/L (13-39); SGPT/ALT 7 U/L (7-52); SODIUM SERUM 137 mEq/L (136-145); TOTAL PROTEIN,SERUM 4.9 gm/dL (6.0-8.3)
[2017-11-03] MEDS ORDERED: LACTOSE REDUCED FOOD PO SCH (09:30)
[2017-11-03] MEDS ORDERED: MULTIVITAMIN PO SCH (09:30)
[2017-11-03] MEDS ORDERED: LYSINE 500 MG PO SCH (09:30)
[2017-11-03] MEDS ORDERED: DIVALPROEX SODIUM 500 MG PO SCH (09:30)
[2017-11-03] MEDS ORDERED: Pneumococcal Vaccine 0.5 mL Vial IM ONE (10:00)
[2017-11-03] MEDS ORDERED: Influenza Vaccine 0.5 mL Syr IM ONE (10:00)
--- NOTE | 2017-11-03 10:20 | History & Physical ---
ADMIT DATE: 11/02/2017 CHIEF COMPLAINT: Fevers x 3 days. HISTORY OF PRESENT ILLNESS: A 36-year-old female, resident of [facility] with multiple previous admissions for pneumonias, UTIs, presents with a 3-day history of on and off fevers. There is no other current pertinent history noted as the patient is nonverbal and suffers from mental retardation. She has a history of dementia, quadriplegia, history of CVA, history of severe scoliosis. Pertinent findings noted on admission include a white count of 14.1, sodium level of 132, and a lactic acid level of 2.13. UA showing some blood and bacteria and a chest x-ray showing some congestion. The patient has been admitted to [facility] for further management and care. The patient appears to be comfortable at this time. The patient's last admission was 09/11/2017. At that time, she was diagnosed with UTI. PAST MEDICAL HISTORY: As noted above. History of seizures. PAST SURGICAL HISTORY: None listed. FAMILY HISTORY: Likely noncontributory to this admission. SOCIAL HISTORY: No tobacco, ETOH, or illicit drug usage. She lives at an assisted living facility. ALLERGIES: NKDA. OUTPATIENT MEDICATIONS: Depakote 500 mg b.i.d., Ensure 237 mL t.i.d., Lamictal 25 t.i.d., Lysine 500 mg b.i.d., multivitamin every day. REVIEW OF SYSTEMS: Unobtainable given the patient's condition. PHYSICAL EXAMINATION: VITAL SIGNS: Current temperature is 99.1, T-max 101.3, pulse 116, respirations 18-20, BP 150/64, satting 96-99% on room air. GENERAL: Well-nourished, disabled female, currently awake and in no distress. HEAD AND NECK: Appears to be normocephalic, atraumatic. Pupils reactive to light. Extraocular movements are within normal limits. Trachea is midline. No JVD. No LAD. CARDIAC: Regular rate and rhythm with no murmurs. LUNGS: Diminished at the bases. ABDOMEN: Soft, supple, appears to be nontender, nondistended with normoactive bowel sounds. EXTREMITIES: On lower extremities, there is no edema. All 4 extremities show contractions. NEUROLOGIC: Unable to be done given patient's condition. LABORATORY DATA: Initially on admission, white count 14.1, H and H 12/36 with a platelet count of 116. INR 1.15. Sodium 132, potassium 3.9, chloride 100, CO2 23, BUN 18, creatinine 0.4, glucose 107, lactic acid level 2.13, calcium 9.2. AST 18, ALT 10, alkaline phosphatase is 41. CPK 20. Troponins negative x 1 set. UA shows moderate blood with 5-10 RBCs, 2+ bacteria, and valproic acid was 157. DIAGNOSTICS: EKG sinus tachycardia at a rate of 125. Chest x-ray shows a limited exam due to body habitus and severe scoliosis. Increase interstitial lung markings are noted, likely chronic. A marginal degree of congestion, considered less likely. There is no focal consolidation identified. There is probable ileus. IMPRESSION: 1. History of fever, sepsis. Differential include secondary to urinary tract infection versus bronchitis/pneumonia. 2. Leukocytosis-monitor. 3. Elevated lactic acid level-monitor, 4. Hyponatremia-monitor. 5. History of mental retardation/quadriplegia. 6. History of dementia. 7. History of seizure disorder. PLAN: The patient has been admitted to [facility] where she has been placed on supportive care and treatment including IV fluids (NS) at 100 mL per hour. She also has been placed on Rocephin and Zithromax and has been pancultured. The patient will be kept on her other medications as scheduled. I will monitor her lactic acid level and we will followup x-ray tomorrow morning. JOB# [id number] [facility]
[2017-11-03] MEDS: Multivitamin Tab PO SCH (10:37)
[2017-11-03] MEDS: cefTRIAXone 1 GM in Sodium Chloride 0.9% 50 ML IV SCH (12:50)
[2017-11-03] MEDS: Azithromycin 500 MG in Sodium Chloride 0.9% 250 ML IV SCH (13:59)
[2017-11-04] MEDS: Albuterol/Ipratropium Neb 3 ML AERS HHN SCH ×6 (02:22→22:41)
[2017-11-04 06:58] LABS: HEMATOCRIT 30.7 % (41.0-60); HEMOGLOBIN 10.5 gm/dL (12-16); LYMPHOCYTE ABSOLUTE 1.4 Th/cmm (1.5-3.0); MEAN CELL VOLUME 95.8 fl (81-100); MEAN CORPUSCULAR HEMOGLOBIN 32.6 pg (27.0-31.0); MEAN CORPUSCULAR HGB CONC 34.1 pg (28.0-36.0); MEAN PLATELET VOLUME 8.2 fl; MONOCYTE ABSOLUTE 1.1 Th/cmm (0.3-1.0); NEUTROPHILE ABSOLUTE 3.7 Th/cmm (1.8-8.0); PLATELET COUNT 117 Th/cmm (150-400); RED BLOOD COUNT 3.21 Mil/cmm (3.80-5.10); RED CELL DISTRIBUTION WIDTH 14.3 % (11.5-20.0); WHITE BLOOD COUNT 6.2 Th/cmm (4.8-10.8)
[2017-11-04] MEDS: Sodium Chloride 0.9% 1,000 ML IV SCH (07:05)
[2017-11-04 07:14] LABS: ANION GAP 8.6 (7.0-16.0); BUN - UREA NITROGEN 5 mg/dL (7-25); CALCIUM SERUM 8.6 mg/dL (8.6-10.3); CARBON DIOXIDE 28.6 mEq/L (21.0-31.0); CHLORIDE 105 mEq/L (98-107); CREATININE - SERUM 0.2 mg/dL (0.6-1.2); GFR AFRICAN-AMERICAN > 60.0 ml/min (>90); GFR NON AFRICAN-AMERICAN > 60.0 ml/min; GLUCOSE 87 mg/dL (70-105); MAGNESIUM 1.8 mg/dL (1.9-2.7); POTASSIUM SERUM 4.2 mEq/L (3.5-5.1); SODIUM SERUM 138 mEq/L (136-145)
--- NOTE | 2017-11-04 09:36 | Diagnostic Imaging Report ---
Portable chest x-ray HISTORY: Pneumonia Compared with prior exam of November 02, 2017, no focal pulmonary processes are seen. Severe scoliosis again noted. IMPRESSION: 1. No focal pulmonary processes
[2017-11-04] MEDS: Multivitamin Tab PO SCH (10:13)
[2017-11-04] MEDS: cefTRIAXone 1 GM in Sodium Chloride 0.9% 50 ML IV SCH (13:16)
[2017-11-04] MEDS: Azithromycin 500 MG in Sodium Chloride 0.9% 250 ML IV SCH (15:22)
[2017-11-05] MEDS: Albuterol/Ipratropium Neb 3 ML AERS HHN SCH ×6 (02:43→23:12)
[2017-11-05] MEDS: Sodium Chloride 0.9% 1,000 ML IV SCH ×3 (04:14→20:11)
[2017-11-05 06:16] LABS: HEMATOCRIT 28.4 % (41.0-60); HEMOGLOBIN 9.6 gm/dL (12-16); LYMPHOCYTE ABSOLUTE 1.7 Th/cmm (1.5-3.0); MEAN CELL VOLUME 95.5 fl (81-100); MEAN CORPUSCULAR HEMOGLOBIN 32.2 pg (27.0-31.0); MEAN CORPUSCULAR HGB CONC 33.7 pg (28.0-36.0); MEAN PLATELET VOLUME 7.9 fl; MONOCYTE ABSOLUTE 0.8 Th/cmm (0.3-1.0); NEUTROPHILE ABSOLUTE 2.5 Th/cmm (1.8-8.0); PLATELET COUNT 119 Th/cmm (150-400); RED BLOOD COUNT 2.97 Mil/cmm (3.80-5.10)
[2017-11-05 06:26] LABS: ANION GAP 9.1 (7.0-16.0); CALCIUM SERUM 8.3 mg/dL (8.6-10.3); CARBON DIOXIDE 27.9 mEq/L (21.0-31.0); CHLORIDE 109 mEq/L (98-107); CREATININE - SERUM 0.2 mg/dL (0.6-1.2); GFR AFRICAN-AMERICAN > 60.0 ml/min (>90); GFR NON AFRICAN-AMERICAN > 60.0 ml/min; GLUCOSE 85 mg/dL (70-105); MAGNESIUM 1.7 mg/dL (1.9-2.7); SODIUM SERUM 142 mEq/L (136-145)
[2017-11-05 07:20] LABS: BUN - UREA NITROGEN 3 mg/dL (7-25)
[2017-11-05 08:08] LABS: INF A SCREEN NEG FOR INF A; INF B SCREEN NEG FOR INF B
[2017-11-05] MEDS: Multivitamin Tab PO SCH (09:20)
[2017-11-05] MEDS ORDERED: Mag Sulfate 2gm/50mL Premix 2 GM/50 ML BAG IV ONE (12:30)
[2017-11-05] MEDS: cefTRIAXone 1 GM in Sodium Chloride 0.9% 50 ML IV SCH (12:39)
[2017-11-05] MEDS: Azithromycin 500 MG in Sodium Chloride 0.9% 250 ML IV SCH (15:56)
[2017-11-06] MEDS: Albuterol/Ipratropium Neb 3 ML AERS HHN SCH ×6 (02:08→22:36)
[2017-11-06] MEDS: Sodium Chloride 0.9% 1,000 ML IV SCH ×2 (04:09→14:37)
[2017-11-06 08:47] LABS: % EOSINOPHILS 2.7 % (0.0-5.0); % LYMPHOCYTES 54.2 % (20.0-50.0); % MONOCYTES 10.4 % (2.0-10.0); % NEUTROPHILS 32.7 % (40.0-80.0); EOSINOPHILE ABSOLUTE 0.1 Th/cmm (0.1-0.4); HEMATOCRIT 30.5 % (41.0-60); HEMOGLOBIN 10.3 gm/dL (12-16); LYMPHOCYTE ABSOLUTE 1.9 Th/cmm (1.5-3.0); MEAN CELL VOLUME 95.4 fl (81-100); MEAN CORPUSCULAR HEMOGLOBIN 32.3 pg (27.0-31.0); MEAN CORPUSCULAR HGB CONC 33.9 pg (28.0-36.0); MEAN PLATELET VOLUME 7.7 fl; MONOCYTE ABSOLUTE 0.4 Th/cmm (0.3-1.0); NEUTROPHILE ABSOLUTE 1.1 Th/cmm (1.8-8.0); PLATELET COUNT 135 Th/cmm (150-400); RED CELL DISTRIBUTION WIDTH 14.2 % (11.5-20.0)
[2017-11-06 08:48] LABS: CALCIUM SERUM 8.8 mg/dL (8.6-10.3); CARBON DIOXIDE 27.5 mEq/L (21.0-31.0); CHLORIDE 107 mEq/L (98-107); CREATININE - SERUM 0.3 mg/dL (0.6-1.2); GFR AFRICAN-AMERICAN > 60.0 ml/min (>90); GFR NON AFRICAN-AMERICAN > 60.0 ml/min; GLUCOSE 98 mg/dL (70-105); POTASSIUM SERUM 4.5 mEq/L (3.5-5.1); SODIUM SERUM 141 mEq/L (136-145)
[2017-11-06 08:53] LABS: BUN - UREA NITROGEN < 2 mg/dL (7-25)
[2017-11-06 08:58] LABS: WHITE BLOOD COUNT 3.5 Th/cmm (4.8-10.8)
[2017-11-06] MEDS: Multivitamin Tab PO SCH (09:23)
[2017-11-06] MEDS: cefTRIAXone 1 GM in Sodium Chloride 0.9% 50 ML IV SCH (14:00)
[2017-11-06] MEDS: Azithromycin 500 MG in Sodium Chloride 0.9% 250 ML IV SCH (15:16)
[2017-11-07] MEDS: Albuterol/Ipratropium Neb 3 ML AERS HHN SCH ×6 (02:06→23:14)
[2017-11-07] MEDS: Sodium Chloride 0.9% 1,000 ML IV SCH ×2 (05:57→23:51)
[2017-11-07] MEDS: Multivitamin Tab PO SCH (09:05)
[2017-11-07] MEDS: cefTRIAXone 1 GM in Sodium Chloride 0.9% 50 ML IV SCH (13:25)
[2017-11-07] MEDS: Azithromycin 500 MG in Sodium Chloride 0.9% 250 ML IV SCH (13:25)
[2017-11-08] MEDS: Albuterol/Ipratropium Neb 3 ML AERS HHN SCH ×3 (03:06→11:05)
[2017-11-08 06:00] LABS: HEMATOCRIT 32.7 % (41.0-60); MEAN CELL VOLUME 95.1 fl (81-100); MEAN CORPUSCULAR HEMOGLOBIN 32.1 pg (27.0-31.0); MEAN CORPUSCULAR HGB CONC 33.8 pg (28.0-36.0); RED BLOOD COUNT 3.43 Mil/cmm (3.80-5.10)
[2017-11-08 06:12] LABS: PLATELET COUNT 220 Th/cmm (150-400); WHITE BLOOD COUNT 3.6 Th/cmm (4.8-10.8)
[2017-11-08 06:20] LABS: ANION GAP 10.6 (7.0-16.0); BUN - UREA NITROGEN 6 mg/dL (7-25); CALCIUM SERUM 9.5 mg/dL (8.6-10.3); CARBON DIOXIDE 27.1 mEq/L (21.0-31.0); CHLORIDE 104 mEq/L (98-107); CREATININE - SERUM 0.3 mg/dL (0.6-1.2); GFR AFRICAN-AMERICAN > 60.0 ml/min (>90); GFR NON AFRICAN-AMERICAN > 60.0 ml/min; GLUCOSE 88 mg/dL (70-105); POTASSIUM SERUM 4.7 mEq/L (3.5-5.1); SODIUM SERUM 137 mEq/L (136-145)
[2017-11-08 07:02] LABS: BAND NEUTROPHILE 0 % (0-10); NEUTROPHILS 35 % (40-80); PLATELET ESTIMATE ADEQUATE (NORMAL); TOTAL CELLS COUNTED 100
[2017-11-08 07:03] LABS: LYMPHOCYTE 48 % (20-50); MONOCYTE 17 % (2-10)
[2017-11-08] MEDS: Multivitamin Tab PO SCH (09:00)
--- NOTE | 2017-11-08 23:16 | Discharge Summary ---
DATE OF DISCHARGE: 11/08/2017 ADMITTING DIAGNOSES: 1. Fever, sepsis. 2. Urinary tract infection. 3. Elevated lactic acid level. 4. Rule out bronchitis versus pneumonia. 5. Hyponatremia. 6. Leukocytosis. SECONDARY DIAGNOSES: Include, 1. History of mental retardation. 2. History of quadriplegia. 3. History of dementia. 4. History of seizure disorder. DISCHARGE DIAGNOSES: 1. Complicated urinary tract infection with group B strep. 2. Fever, sepsis, resolved. 3. Elevated lactic acid level, resolved. 4. Leukocytosis, resolved. 5. Hyponatremia, resolved. CONSULTANTS: None. MAJOR PROCEDURES: None. BRIEF HOSPITAL COURSE: The patient is a 36-year-old lady, resident for [facility], who has been admitted to this facility in the past for infections including UTIs and pneumonias, who presented with a 3-day history of on and off fevers. Pertinent findings on admission included a white count of 14.1, a sodium level of 132, and lactic acid level of 2.13. UA also shows some blood and bacteria, and on x-ray was nonspecific, but it showed some crowding/congestion with possible development of bronchitis versus pneumonia. The patient's initial temperature was also noted to be 101.3. Also of note, she was noted to be tachycardic around 120s-130s. The patient was admitted to tele floor, given the above-mentioned information, and placed on IV fluids, IV antibiotics. Her clinical picture improved by hospital day #1-her temperature slowly improved, and tachycardia as well. By 11/03, her pulse was around the 100s, she was afebrie, and her blood pressure remained stable. Followup x-ray done on the showed no focal pulmonary processes. Blood cultures remained negative and urine culture showed mixed urogenital leah including group B strep. The patient has remained stable, as noted above, and is also eating well. MEDICATIONS ON DISCHARGE: Augmentin 500 mg b.i.d. x 10 days, Depakote 500 mg b.i.d., Lamictal 25 t.i.d., L-lysine 500 mg b.i.d. and multivitamins every day. DISPOSITION: The patient was discharged back to [facility] under the care of Dr. Serrano. JOB# [id number] MTDD
== END 2017-11-08 12:55 | disposition home or self-care (01) | DRG 871 ==
LOC: ER 12:09 → MSI 15:00
PROVIDERS: ADMIT Internal Medicine; ATTEND Internal Medicine
DX: A41.9 Sepsis, unspecified organism (principal); J18.9 Pneumonia, unspecified organism; G82.50 Quadriplegia, unspecified; E87.1 Hypo-osmolality and hyponatremia; F03.90 Unspecified dementia, unspecified severity, without behavioral disturbance, psychotic disturbance, mood disturbance, and anxiety; N39.0 Urinary tract infection, site not specified; F79 Unspecified intellectual disabilities; G40.909 Epilepsy, unspecified, not intractable, without status epilepticus; M41.9 Scoliosis, unspecified; B95.1 Streptococcus, group B, as the cause of diseases classified elsewhere; Z86.73 Personal history of transient ischemic attack (TIA), and cerebral infarction without residual deficits; Z83.3 Family history of diabetes mellitus; Z82.49 Family history of ischemic heart disease and other diseases of the circulatory system
CPT/HCPCS: 36415-UA; 71045-TC; 80048-TC; 80053-TC; 80164-TC; 80299-90; 81001-TC; 82550-TC; 83605; 83735-TC; 84484-TC; 84703-TC; 85007-TC; 85025-TC; 85027-TC; 85610-TC; 85730-TC; 87086-90; 87804-TC; 93005; 94760; J0456; J0696; J3475; J7030; Z7610

== ENCOUNTER 2019-02-07 17:37 | Inpatient (IN) | payer MEDICARE, MEDICAID ==
--- NOTE | 2019-02-07 17:54 | ED Physician Chart ---
ED Chief Complaint/HPI - Patient Information Date Seen:: 02/07/19 Time Seen:: 17:45 Chief Complaint:: Fever History of Present Illness:: onset x 2 days of fever, cough, and congestion; no report of trauma, H/As, S/T, neck pain, C/P, SOB, Abd. Pain, or urinary s/s Allergies:: Allergies Allergy/AdvReac Type Severity Reaction Status Date / Time No Known Allergies Allergy Verified 09/11/17 18:10 Vitals:: Vital Signs - 8 hr 02/07/19 17:43 Temp 97.6 F HR 77 RR 20 BP 97/61 O2 Sat % 96 Historian:: Patient, Friend Review:: Nurse's Note Reviewed, Old Chart Reviewed <Jese Shepard - Last Filed: 02/07/19 19:01> - Patient Information Allergies:: Allergies Allergy/AdvReac Type Severity Reaction Status Date / Time No Known Allergies Allergy Verified 09/11/17 18:10 Vitals:: Vital Signs - 8 hr 02/07/19 02/07/19 17:43 19:22 Temp 97.6 F 97.5 F HR 77 78 RR 20 18 BP 97/61 107/57 O2 Sat % 96 100 <Simone Tay - Last Filed: 02/07/19 19:40> ED Review of Systems - Review of Systems General/Constitutional: Fever, No chills, No weight loss, No weakness, No diaphoresis, No edema, No loss of appetite Skin: No skin lesions, No rash, No bruising Head: No headache, No light-headedness Eyes: No loss of vision, No pain, No diplopia ENT: No earache, Nasal drainage, No sore throat, No tinnitus Neck: No neck pain, No swelling, No thyromegaly, No stiffness, No mass noted Cardio Vascular: No chest pain, No palpitations, No PND, No orthopnea, No edema Pulmonary: No SOB, Cough, No sputum, No wheezing GI: No nausea, No vomiting, No diarrhea, No pain, No melena, No hematochezia, No constipation, No hematemesis G/U: No dysuria, No frequency, No hematuria, No nacturia [employer] Attendant: No vaginal discharge, No abnormal vaginal bleed, No contraction Musculoskeletal: No bone or joint pain, No back pain, No muscle pain Endocrine: No polyuria, No polydipsia Psychiatric: No prior psych history, No depression, No anxiety, No suicidal ideation, No homicidal ideation, No auditory hallucination, No visual hallucination Hematopoietic: No bruising, No lymphadenopathy Allergic/Immuno: No urticaria, No angioedema Neurological: No syncope, No focal symptoms, No weakness, No paresthesia, No headache, No seizure, No dizziness, Confusion, No vertigo <Jese Shepard Last Filed: 02/07/19 19:01> ED Past Medical History - Past Medical History Obtainable: Yes Past Medical History: Dyslipidemia, Seizures, Dementia Family History: HTN Social History: Non Smoker, No Alcohol, No Drug Use, Single, Care Facility Surgical History: None Psychiatricy History: Dementia Medication: Reviewed <ErineliotchristopherJese Filed: 02/07/19 19:> Family Medical History - Family Member Mother History Unknown: Yes Ethnicity: Non- Living Status: Unknown Hx Family Cancer: No Hx Family Coronary Artery Disease: No Hx Family Congestive Heart Failure: No Hx Family Hypertension: No Hx Family Stroke: No Hx Family Diabetes: No Hx Family Seizures: No Hx Family Dementia: No Hx Family AIDS: No Hx Family HIV: No Hx Family COPD: No Hx Family Hepatitis: No Hx Family Psychiatric Problems: No Hx Family Tuberculosis: No <Jese Shepard Filed: 02/07/19 19:01> ED Physical Exam - Physical Examination General/Constitutional: Awake, Well-developed, well-nourished, Alert, No distress, GCS 15, Non-toxic appearing, Ambulatory Head: Atraumatic Eyes: Lids, conjuctiva normal, PERRL, EOMI Skin: Nl inspection, No rash, No skin lesions, No ecchymosis, Well hydrated, No lymphadenopathy ENMT: External ears, nose nl, TM canals nl, Nasal exam nl, Lips, teeth, gums nl , Oropharynx nl, Tonsils nl Neck: Nontender, Full ROM w/o pain, No JVD, No nuchal rigidity, No bruit, No mass, No stridor Respiratory: Nl effort/Exclusion, Clear to Auscultation, No Wheeze/Rhonchi/Rales Cardio Vascular: RRR, No murmur, gallop, rubs, NL S1 S2, Carotid/Femoral/Distal pulses equal bilaterally GI: No tenderness/rebounding/guarding, No organomegaly, No hernia, Normal BS's, Nondistended, No mass/bruits, No McBurney tenderness : No CVA tenderness Extremities: No tenderness or effusion, Full ROM, normal strength in all extremities, No edema, Normal digits & nails Neuro/Psych: Alert/oriented, DTR's symmetric, Normal sensory exam, Normal motor strength, Judgement/insight normal, Mood normal, Normal gait, No focal deficits Misc: Normal back, No paraspinal tenderness <Jese Shepard - Last Filed: 02/07/19 19:01> ED Labs/Radiology/EKG Results - Lab Results Comments:: Reviewed - EKG Interpretations EKG Time:: 18:02 Rate & Rhythm: 94; NSR Comments:: non-specific st-t changes <Jese Shepard - Last Filed: 02/07/19 19:01> - Lab Results Results: Laboratory Tests 02/07/19 02/07/19 02/07/19 18:25 18:25 18:25 WBC 5.0 RBC 3.80 Hgb 12.4 Hct 37.3 L MCV 98.2 MCH 32.6 H MCHC Differential 33.2 RDW 13.0 Plt Count 166 MPV 8.2 Neutrophils % 52.5 Lymphocytes % 34.2 Monocytes % 12.8 H Eosinophils % 0.5 Basophils % 0.0 PT 10.1 INR 0.97 PTT (Actin FS) 24.8 L Sodium 134 L Potassium 4.9 Chloride 100 Carbon Dioxide 28.7 Anion Gap 10.2 BUN 16 Creatinine 0.5 L Est GFR ( Amer) > 60.0 Est GFR (Non-Af Amer) > 60.0 BUN/Creatinine Ratio 32.0 Glucose 111 H Whole Bld Lactic Acid Calcium 9.1 Total Bilirubin 0.2 L AST 11 L ALT 6 L Alkaline Phosphatase 37 Creatine Kinase 15 L Troponin I Total Protein 5.9 L Albumin 3.6 L Globulin 2.3 Albumin/Globulin Ratio 1.6 Serum , Qual 02/07/19 02/07/19 18:25 18:25 WBC RBC Hgb Hct MCV MCH MCHC Differential RDW Plt Count MPV Neutrophils % Lymphocytes % Monocytes % Eosinophils % Basophils % PT INR PTT (Actin FS) Sodium Potassium Chloride Carbon Dioxide Anion Gap BUN Creatinine Est GFR ( Amer) Est GFR (Non-Af Amer) BUN/Creatinine Ratio Glucose Whole Bld Lactic Acid 1.20 Calcium Total Bilirubin AST ALT Alkaline Phosphatase Creatine Kinase Troponin I < 0.01 L Total Protein Albumin Globulin Albumin/Globulin Ratio Serum , Qual NEGATIVE <Simone Tay - Last Filed: 02/07/19 19:40> ED Assessment - Assessment General Assessment: gastric distention ileus no obvious infiltrate plan for gastric decompression and admit dr sneed <Simone Tay - Last Filed: 02/07/19 19:40> ED Septic Shock - . Is Septic Shock (SBP<90, OR Lactate>4 mmol\L) present?: No - <6hrs of presentation: Vital Signs: Vital Signs - 8 hr 02/07/19 17:43 Temp 97.6 F HR 77 RR 20 BP 97/61 O2 Sat % 96 <Jese Shepard - Last Filed: 02/07/19 19:01> - <6hrs of presentation: Vital Signs: Vital Signs - 8 hr 02/07/19 02/07/19 17:43 19:22 Temp 97.6 F 97.5 F HR 77 78 RR 20 18 BP 97/61 107/57 O2 Sat % 96 100 <Simone Tay - Last Filed: 02/07/19 19:40> ED Reassessment (Disposition) - Reassessment Reassessment Condition:: Improved - Diagnosis Diagnosis:: Fever; Cough; Congestion; Dehydration; Hypotension; Hyponatremia <Jese Shepard - Last Filed: 02/07/19 19:01>
[2019-02-07 18:29] LABS: % EOSINOPHILS 0.5 % (0.0-5.0); % LYMPHOCYTES 34.2 % (20.0-50.0); % MONOCYTES 12.8 % (2.0-10.0); % NEUTROPHILS 52.5 % (40.0-80.0); HEMATOCRIT 37.3 % (41.0-60); HEMOGLOBIN 12.4 gm/dL (12-16); LYMPHOCYTE ABSOLUTE 1.7 Th/cmm (1.5-3.0); MEAN CELL VOLUME 98.2 fl (81-100); MEAN CORPUSCULAR HEMOGLOBIN 32.6 pg (27.0-31.0); MEAN CORPUSCULAR HGB CONC 33.2 pg (28.0-36.0); MEAN PLATELET VOLUME 8.2 fl; MONOCYTE ABSOLUTE 0.6 Th/cmm (0.3-1.0); NEUTROPHILE ABSOLUTE 2.7 Th/cmm (1.8-8.0); PLATELET COUNT 166 Th/cmm (150-400)
[2019-02-07 18:46] LABS: INR 0.97 (0.5-1.4); PROTHROMBIN TIME (TEST) 10.1 SECONDS (9.5-11.5)
[2019-02-07 18:48] LABS: ALB/GLOB RATIO 1.6 (1.0-1.8); ALBUMIN 3.6 gm/dL (3.7-5.3); ALKALINE PHOSPHATASE 37 U/L (34-104); ANION GAP 10.2 (7.0-16.0); BILIRUBIN,TOTAL 0.2 mg/dL (0.3-1.0); BUN - UREA NITROGEN 16 mg/dL (7-25); CALCIUM SERUM 9.1 mg/dL (8.6-10.3); CARBON DIOXIDE 28.7 mEq/L (21.0-31.0); CHLORIDE 100 mEq/L (98-107); CREATININE - SERUM 0.5 mg/dL (0.6-1.2); CREATININE KINASE 15 U/L (30-223); GFR AFRICAN-AMERICAN > 60.0 ml/min (>90); GFR NON AFRICAN-AMERICAN > 60.0 ml/min; GLUCOSE 111 mg/dL (70-105); POTASSIUM SERUM 4.9 mEq/L (3.5-5.1); SGOT 11 U/L (13-39); SGPT/ALT 6 U/L (7-52); SODIUM SERUM 134 mEq/L (136-145); TOTAL PROTEIN,SERUM 5.9 gm/dL (6.0-8.3)
[2019-02-07 18:51] LABS: TROP I < 0.01 ng/mL (0.01-0.05)
[2019-02-07] MEDS ORDERED: Fleet Enema 135 mL RC PRN (21:53)
[2019-02-07] MEDS: D5-0.45NS 1,000 ML IV SCH (22:40)
[2019-02-07] MEDS: Levofloxacin 500mg/100mL 500 MG/100 ML BAG IV SCH (22:47)
[2019-02-07 23:30] VITALS: BP 144/102
[2019-02-07] MEDS: Metoclopramide 5 mg/mL 2mL Vial IVP SCH (23:38)
[2019-02-08] MEDS: Metoclopramide 5 mg/mL 2mL Vial IVP SCH ×3 (04:51→21:10)
[2019-02-08 06:45] LABS: HEMATOCRIT 37.2 % (41.0-60); HEMOGLOBIN 12.5 gm/dL (12-16); LYMPHOCYTE ABSOLUTE 1.6 Th/cmm (1.5-3.0); MEAN CELL VOLUME 97.9 fl (81-100); MEAN CORPUSCULAR HEMOGLOBIN 32.9 pg (27.0-31.0); MEAN CORPUSCULAR HGB CONC 33.6 pg (28.0-36.0); MEAN PLATELET VOLUME 8.2 fl; MONOCYTE ABSOLUTE 1.3 Th/cmm (0.3-1.0); NEUTROPHILE ABSOLUTE 4.7 Th/cmm (1.8-8.0); PLATELET COUNT 178 Th/cmm (150-400); RED BLOOD COUNT 3.79 Mil/cmm (3.80-5.10); RED CELL DISTRIBUTION WIDTH 13.1 % (11.5-20.0)
[2019-02-08 07:01] LABS: WHITE BLOOD COUNT 7.6 Th/cmm (4.8-10.8)
[2019-02-08 07:04] LABS: ALB/GLOB RATIO 1.7 (1.0-1.8); ALBUMIN 3.8 gm/dL (3.7-5.3); ALKALINE PHOSPHATASE 36 U/L (34-104); BILIRUBIN,TOTAL 0.2 mg/dL (0.3-1.0); BUN - UREA NITROGEN 13 mg/dL (7-25); CALCIUM SERUM 8.9 mg/dL (8.6-10.3); CARBON DIOXIDE 24.5 mEq/L (21.0-31.0); CHLORIDE 104 mEq/L (98-107); CHOLESTEROL 127 mg/dL (<200); CREATININE - SERUM 0.4 mg/dL (0.6-1.2); GFR AFRICAN-AMERICAN > 60.0 ml/min (>90); GFR NON AFRICAN-AMERICAN > 60.0 ml/min; GLUCOSE 89 mg/dL (70-105); HDL -HIGH DENSITY LIPOPROTEIN 61 mg/dL (23-92); MAGNESIUM 1.7 mg/dL (1.9-2.7); POTASSIUM SERUM 4.5 mEq/L (3.5-5.1); SGOT 13 U/L (13-39); SGPT/ALT 6 U/L (7-52); SODIUM SERUM 138 mEq/L (136-145); TRIGLYCERIDES 30 mg/dL (<150)
--- NOTE | 2019-02-08 07:38 | Diagnostic Imaging Report ---
Portable chest x-ray HISTORY: Cough The exam is limited due to the patient's head which partially obscures the apical regions of the chest. The visualized lungs are unremarkable. No focal point processes. The heart size is normal. Severe scoliosis of the spine. IMPRESSION: 1. Limited exam with no definite focal pulmonary processes
--- NOTE | 2019-02-08 07:56 | Diagnostic Imaging Report ---
KUB abdominal film HISTORY: Abdominal distention There is a nonspecific gas pattern of nondilated bowel. Stool is seen within nondilated large bowel and within minimally distended rectum. No free and peritoneal air. Severe scoliosis of the spine. IMPRESSION: 1. Stool-filled nondilated descending colon and rectum with an otherwise nonspecific appearance.
[2019-02-08 07:57] LABS: LYMPHOCYTE 23 % (20-50); MONOCYTE 17 % (2-10); NEUTROPHILS 60 % (40-80)
[2019-02-08 07:58] LABS: PLATELET ESTIMATE ADEQUATE (NORMAL)
--- NOTE | 2019-02-08 12:37 | History & Physical ---
ADMIT DATE: 02/08/2019 CHIEF COMPLAINT: Congestion, abdominal distention. HISTORY OF PRESENT ILLNESS: This is a 38-year-old female resident of [facility] with a medical history significant for severe mental retardation, history of quadriplegia, CVA, severe scoliosis, dementia with previous admission to this facility for pneumonias, who presented from the board and care with the above-mentioned complaints, namely fevers and abdominal distention. Per ER notes, the onset was for about 2 days and she also has been noted to be coughing with congestion. The patient was transferred for the above-mentioned reasons to the ER where pertinent findings include abdominal distention with a negative x-ray and KUB showing a stool filled nondilated descending colon and rectum with an otherwise nonspecific appearance. Given her comorbidities and her previous history, the patient has been admitted to the medical floor for further management and care. PAST MEDICAL HISTORY: As noted above. PAST SURGERIES: None listed. FAMILY HISTORY: Likely noncontributory to this admission. SOCIAL HISTORY: No tobacco, ETOH, or illicit drug usage. She is a long time resident of [facility] under the care of Dr. Serrano. ALLERGIES: NKDA. MEDICATIONS: Oral home medications; Depakote 500 mg b.i.d., Ensure q. daily, Lamictal 225 mg q. day, lysine 500 mg b.i.d., Megace 10 mL b.i.d. and multivitamins q. day. REVIEW OF SYSTEMS: A full review of systems was unable to be done given the patient's condition, but generally fevers x 2 days. No documented weight loss. PULMONARY: As noted above, congestion and cough. GASTROINTESTINAL: Abdominal distention. There are no reports of nausea, vomiting or constipation per se. PHYSICAL EXAMINATION: VITAL SIGNS: Temperature 98.0, pulse 89, respirations 20, BP 130/78, satting 93-97% on 2 liters. GENERAL: She is a well-nourished developmentally delayed female, who is currently awake. She appears to be somewhat discomfortable, but nontoxic appearing, in no acute distress, showing no signs of respiratory distress at this time as well. HEAD AND NECK: Normocephalic, atraumatic. Pupils are reactive to light. Extraocular movements are intact. CARDIAC: Regular rate and rhythm without any murmurs. LUNGS: Diminished at both bases with mild fine crackles upon deep inspiration, but no rhonchi. ABDOMEN: Moderately distended, soft, supple. There is some mild tenderness to palpation upon deep palpation. Bowel sounds were not noted at this time. EXTREMITIES: Lower extremities, there is no edema. All 4 extremities are contracted. NEUROLOGIC: Difficult to assess given the patient's condition at this time in her medical history. LABORATORY DATA: CBC showed H and H of , otherwise was within normal limits. INR 0.97. Sodium 134, glucose 111. AST 11, ALT 6, alk phos 37, creatine kinase 15. Troponins were negative x 1 set. Albumin 3.6. test was negative. UA is currently pending. DIAGNOSTICS: Please refer to the HPI. ASSESSMENT: 1. Fever, rule out sepsis. Differential includes pneumonia including aspiration versus urinary tract infection. 2. Congestion, rule out pneumonia versus early bronchitis. 3. Constipation/ileus. 4. History of previous urinary tract infections and pneumonias. 5. History of mental retardation, quadriplegia, dementia, seizure disorder. PLAN: The patient has been admitted to the medical floor for further management and care. The patient has been placed on IV fluids, is currently n.p.o. and has been started on empiric IV antibiotics. She also will be receiving Protonix 40 mg IV q. day and given her current findings, I will start her on a bowel regimen including enemas as needed. A GI consult will also be asked for further management and care. [facility]# [id number]
[2019-02-08] MEDS ORDERED: Mag Sulfate 2gm/50mL Premix 2 GM/50 ML BAG IV ONE (13:46)
[2019-02-08] MEDS ORDERED: Lactulose 10 Gm/15 mL 30mL UDC PO ONE (13:46)
[2019-02-08] MEDS ORDERED: Magnesium Citrate 1.75 GM/300 mL Bottle PO ONE (17:29)
[2019-02-08] MEDS: D5-0.45NS 1,000 ML IV SCH (18:17)
[2019-02-08] MEDS: Levofloxacin 500mg/100mL 500 MG/100 ML BAG IV SCH (21:10)
[2019-02-09] MEDS: Metoclopramide 5 mg/mL 2mL Vial IVP SCH (05:01)
[2019-02-09 06:26] LABS: HEMATOCRIT 39.9 % (41.0-60); HEMOGLOBIN 13.5 gm/dL (12-16); LYMPHOCYTE ABSOLUTE 1.4 Th/cmm (1.5-3.0); MEAN CELL VOLUME 97.9 fl (81-100); MEAN CORPUSCULAR HEMOGLOBIN 33.1 pg (27.0-31.0); MEAN CORPUSCULAR HGB CONC 33.8 pg (28.0-36.0); MEAN PLATELET VOLUME 8.2 fl; MONOCYTE ABSOLUTE 1.5 Th/cmm (0.3-1.0); NEUTROPHILE ABSOLUTE 3.3 Th/cmm (1.8-8.0); PLATELET COUNT 163 Th/cmm (150-400); RED BLOOD COUNT 4.07 Mil/cmm (3.80-5.10); RED CELL DISTRIBUTION WIDTH 12.8 % (11.5-20.0); WHITE BLOOD COUNT 6.2 Th/cmm (4.8-10.8)
[2019-02-09 06:39] LABS: BUN - UREA NITROGEN 8 mg/dL (7-25); CALCIUM SERUM 8.6 mg/dL (8.6-10.3); CHLORIDE 107 mEq/L (98-107); CREATININE - SERUM 0.4 mg/dL (0.6-1.2); GFR AFRICAN-AMERICAN > 60.0 ml/min (>90); GFR NON AFRICAN-AMERICAN > 60.0 ml/min; GLUCOSE 113 mg/dL (70-105); MAGNESIUM 2.7 mg/dL (1.9-2.7); SODIUM SERUM 135 mEq/L (136-145)
[2019-02-09 07:32] LABS: % EOSINOPHILS 0.5 % (0.0-5.0); % LYMPHOCYTES 23.6 % (20.0-50.0); % MONOCYTES 22.9 % (2.0-10.0)
[2019-02-09] MEDS ORDERED: Probiotic Screen MC PRN (09:09)
[2019-02-09] MEDS ORDERED: LYSINE 500 MG PO SCH (09:15)
[2019-02-09] MEDS ORDERED: Non-Formulary Item 1 EA (Lactose-Reduced Food [Ensure Liquid] 237 ML) PO SCH (09:15)
--- NOTE | 2019-02-09 09:17 | Internal Medicine Prog Note ---
Internal Medicine Subjective - Subjective Service Date: 02/09/19 (awake, no acute events. Had large BM last night. Tremolous at times.) Patient seen and examined:: with staff Patient is:: awake Patient Complaints of:: constipation Per staff patient has:: no adverse event Internal Medicine Objective - Results Result Diagrams: 02/09/19 05:45 02/09/19 05:45 Recent Labs: Laboratory Last Values WBC 6.2 Th/cmm (4.8-10.8) 02/09/19 05:45 RBC 4.07 Mil/cmm (3.80-5.10) 02/09/19 05:45 Hgb 13.5 gm/dL (12-16) 02/09/19 05:45 Hct 39.9 % (41.0-60) L 02/09/19 05:45 MCV 97.9 fl (81-100) 02/09/19 05:45 MCH 33.1 pg (27.0-31.0) H 02/09/19 05:45 MCHC Differential 33.8 pg (28.0-36.0) 02/09/19 05:45 RDW 12.8 % (11.5-20.0) 02/09/19 05:45 Plt Count 163 Th/cmm (150-400) 02/09/19 05:45 MPV 8.2 fl 02/09/19 05:45 Add Manual Diff YES 02/09/19 05:45 Neutrophils % 53.0 % (40.0-80.0) 02/09/19 05:45 Lymphocytes % 23.6 % (20.0-50.0) 02/09/19 05:45 Monocytes % 22.9 % (2.0-10.0) H 02/09/19 05:45 Eosinophils % 0.5 % (0.0-5.0) 02/09/19 05:45 Basophils % 0.0 % (0.0-2.0) 02/09/19 05:45 Neutrophils (Manual) 60 % (40-80) 02/08/19 06:10 Lymphocytes 23 % (20-50) 02/08/19 06:10 Monocytes 17 % (2-10) H 02/08/19 06:10 Platelet Estimate ADEQUATE (NORMAL) 02/08/19 06:10 PT 10.1 SECONDS (9.5-11.5) 02/07/19 18:25 INR 0.97 (0.5-1.4) 02/07/19 18:25 PTT (Actin FS) 24.8 SECONDS (26.0-38.0) L 02/07/19 18:25 Sodium 135 mEq/L (136-145) L 02/09/19 05:45 Potassium 4.0 mEq/L (3.5-5.1) 02/09/19 05:45 Chloride 107 mEq/L (98-107) 02/09/19 05:45 Carbon Dioxide 19.0 mEq/L (21.0-31.0) L 02/09/19 05:45 Anion Gap 13.0 (7.0-16.0) 02/09/19 05:45 BUN 8 mg/dL (7-25) 02/09/19 05:45 Creatinine 0.4 mg/dL (0.6-1.2) L 02/09/19 05:45 Est GFR ( Amer) > 60.0 ml/min (>90) 02/09/19 05:45 Est GFR (Non-Af Amer) > 60.0 ml/min 02/09/19 05:45 BUN/Creatinine Ratio 20.0 02/09/19 05:45 Glucose 113 mg/dL (70-105) H 02/09/19 05:45 POC Glucose 119 MG/DL (70 - 105) H 02/08/19 18:35 Whole Bld Lactic Acid 1.20 mmol/L (0.60-1.99) 02/07/19 18:25 Calcium 8.6 mg/dL (8.6-10.3) 02/09/19 05:45 Magnesium 2.7 mg/dL (1.9-2.7) 02/09/19 05:45 Total Bilirubin 0.2 mg/dL (0.3-1.0) L 02/08/19 06:10 AST 13 U/L (13-39) 02/08/19 06:10 ALT 6 U/L (7-52) L 02/08/19 06:10 Alkaline Phosphatase 36 U/L (34-104) 02/08/19 06:10 Creatine Kinase 15 U/L (30-223) L 02/07/19 18:25 Troponin I < 0.01 ng/mL (0.01-0.05) L 02/07/19 18:25 Total Protein 6.0 gm/dL (6.0-8.3) 02/08/19 06:10 Albumin 3.8 gm/dL (3.7-5.3) 02/08/19 06:10 Globulin 2.2 gm/dL 02/08/19 06:10 Albumin/Globulin Ratio 1.7 (1.0-1.8) 02/08/19 06:10 Triglycerides 30 mg/dL (<150) 02/08/19 06:10 Cholesterol 127 mg/dL (<200) 02/08/19 06:10 LDL Cholesterol Direct 48 mg/dL (75-193) L 02/08/19 06:10 HDL Cholesterol 61 mg/dL (23-92) 02/08/19 06:10 TSH 6.90 uIU/ml (0.34-5.60) H 02/08/19 06:10 Serum , Qual NEGATIVE (NEGATIVE) 02/07/19 18:25 - Physical Exam Vitals and I&O: Vital Signs Temp 96.9 F 02/09/19 03:59 Pulse 92 02/09/19 03:59 Resp 18 02/09/19 03:59 BP 144/85 02/09/19 03:59 Pulse Ox 100 02/09/19 03:59 Intake & Output 02/08/19 02/09/19 02/09/19 18:59 06:59 18:59 Intake Total 1040 Output Total 2 Balance 1040 -2 Weight (lbs) 34.927 kg 39.871 kg Intake: Intake, IV Amount 1000 D5-0.45NS 1,000 ml @ 75 1000 mls/hr IV .[id number] [facility] Rx #:[id number] Other 40 Output: Urine 2 Other: # Voids 3 2 # Bowel Movements 0 Weight Source Bedscale Bedscale Active Medications: Current Medications Bisacodyl (Dulcolax 10 Mg Supp) 10 mg RC DAILY [facility] Stop: 04/09/19 11:29 Last Admin: 02/09/19 08:30 Dose: Not Given Docusate Sodium (Colace) 250 mg PO BID [facility] Stop: 04/09/19 16:59 Last Admin: 02/09/19 08:29 Dose: 250 mg Dextrose/Sodium Chloride (D5-0.45ns) 1,000 mls @ 75 mls/hr IV .[id number] [facility] Stop: 04/08/19 21:52 Last Admin: 02/08/19 18:17 Dose: 75 mls/hr Levofloxacin (Levaquin Pb) 500 mg in 100 mls @ 100 mls/hr IV Q24HR [facility] Stop: 04/08/19 21:52 Last Admin: 02/08/19 21:10 Dose: 100 mls/hr Lactobacillus Rhamnosus (Culturelle 15b) 1 each PO DAILY [facility] Stop: 04/10/19 11:59 Metoclopramide HCl (Reglan) 10 mg IVP Q8HR [facility] Stop: 04/08/19 23:29 Last Admin: 02/09/19 05:01 Dose: 10 mg Mineral Oil (Mineral Oil 30 Ml) 30 ml PO BID PRN PRN Reason: Constipation Stop: 02/11/19 17:29 Miscellaneous (Probiotic Screen) 1 ea PRN PRN PRN Reason: PROTOCOL Stop: 04/10/19 09:08 Pantoprazole Sodium (Protonix) 40 mg IVP DAILY [facility] Stop: 04/09/19 08:59 Last Admin: 02/09/19 08:29 Dose: 40 mg Sodium Phosphate (Fleet Enema) 135 ml RC PRN PRN PRN Reason: Constipation Stop: 04/08/19 21:52 General: NAD HEENT: NC/AT, PERRLA, EOMI Neck: Supple, No JVD, No LAD Lungs: CTAB Cardiovascular: RRR, Normal S1, Normal S2, without murmur Abdomen: soft, non-tender, distended, positive bowel sound Extremities: clear Neurological: no change - Procedures Procedures: Procedures Procedure Code Date EMERGENCY DEPT VISIT 31405 12/04/11 INJECT/INFUSE NEC 99.29 04/22/09 Internal Medicine Assmt/Plan - Assessment Assessment: FEVER, R/O SEPSIS. DDX INCLUDES UTI, GI SOURCE vs PULM SOURCE. CONSTIPATION/ILEUS-clinically improving. UTI-follow c/s. CONGESTION, r/o pna-aspiratyion vs bronchitis-clinically improving. HISTORY OF MR, QUADRIPILGIA,, DEMENTIA, SEIZURE D/O. - Plan Plan: CONT WITH CURRENT MED SUPPORTIVE CARE AND MGT CONT WITH IVF, IV ABXS, FOLLOW UC/S START DIET AND ADVANCE TOLERATED CONT WITH CURRENT BOWEL REGIMEN RESTART HOME MEDS SCHEDULED RE-CK KUB, CXR Nutritional Asmnt/Malnutr-PDOC - Dietary Evaluation Malnutrition Findings (Please click <Entered> for more info): Nutritional Asmnt/Malnutrition Start: 02/08/19 15: 26 Text: Status: Complete Freq: Protocol: Document 02/08/19 15:29 AILYNNARESH (Rec: 02/08/19 15:58 [email or web address]) Nutritional Asmnt/Malnutrition Patient General Information Nutritional Screening High Risk Diagnosis abdominal distention and congestion Pertinent Medical Hx/Surgical Hx dyslipidemia, seizure, dementia Subjective Information Pt seen lying in bed, confused . Per nurse pt was not eating at half-way. Pt is on NPO status. Current Diet Order/ Nutrition Support NPO Pertinent Medications D5-0.45ns, colace, levaquin, reglan, protonix Pertinent Labs 5/2 Cr 0.4, Mg 1.7 Nutritional Hx/Data Height 1.47 m Height (Calculated Centimeters) 147.3 Current Weight (lbs) 34.927 kg Weight (Calculated Kilograms) 34.9 Weight (Calculated Grams) 31614.6 [place] Body Weight 96 Body Mass Index (BMI) 16.0 Weight Status Underweight GI Symptoms GI Symptoms None Last BM 5/2 Difficult in: None Skin Integrity/Comment: intact lucy 9 Current %PO Negligible < 25% Estimated Nutritional Goals BEE in Kcals: Using Current wt Calories/Kcals/Kg 30-35 Kcals Calculated 3166-0103 Protein: Using Current wt Protein g/k.2-1.4 Protein Calculated 42-49 Fluid: ml 1050-1225ml (1ml/kcal) Nutritional Problem No current Nutrition Prob Problem N/A Malnutrition Related to Morbid Obesity Malnutrition related to morbid obesity No Intervention/Recommendation Comments 1. Monitor NPO stauts. Start oral diet when medically approriate. Reconmend swallow eval as needed. 2. Monitor PO intake, wt, labs and skin integrity 3. F/U as high risk in 2-3 days Expected Outcomes/Goals Expected Outcomes/Goals 1. PO intake to meet at least 75% of nutritional needs. 2. Wt stability, skin to remain intact, labs to approach WNL.
[2019-02-09 10:13] LABS: BAND NEUTROPHILE 0 % (0-10); BASOPHIL 0 % (0-3); EOSINOPHIL 0 % (0-5); LYMPHOCYTE 27 % (20-50); MONOCYTE 23 % (2-10); NEUTROPHILS 50 % (40-80); PLATELET ESTIMATE ADEQUATE (NORMAL)
--- NOTE | 2019-02-09 11:04 | Diagnostic Imaging Report ---
Portable chest x-ray HISTORY: Shortness of breath Compared with the prior exam of February 07, 2019, positioning is improved. No focal pulmonary processes are seen. The heart size appears normal. Severe scoliosis again noted. IMPRESSION: 1. No acute focal pulmonary processes.
--- NOTE | 2019-02-09 11:05 | Diagnostic Imaging Report ---
KUB abdominal film HISTORY: Abdominal distention There is a nonspecific gas pattern of nondilated bowel. Air noted within a nondilated rectum. No free intraperitoneal air. Severe scoliosis. IMPRESSION: 1. Nonspecific bowel gas pattern with no acute radiographic abnormalities
--- NOTE | 2019-02-09 12:04 | GI Progress Note ---
Subjective - Review of Systems Service Date: 02/09/19 Events since last encounter: No events Subjective: No distress and had BMs Objective - Results Result Diagrams: 02/09/19 05:45 02/09/19 05:45 Recent Labs: Laboratory Last Values WBC 6.2 Th/cmm (4.8-10.8) 02/09/19 05:45 RBC 4.07 Mil/cmm (3.80-5.10) 02/09/19 05:45 Hgb 13.5 gm/dL (12-16) 02/09/19 05:45 Hct 39.9 % (41.0-60) L 02/09/19 05:45 MCV 97.9 fl (81-100) 02/09/19 05:45 MCH 33.1 pg (27.0-31.0) H 02/09/19 05:45 MCHC Differential 33.8 pg (28.0-36.0) 02/09/19 05:45 RDW 12.8 % (11.5-20.0) 02/09/19 05:45 Plt Count 163 Th/cmm (150-400) 02/09/19 05:45 MPV 8.2 fl 02/09/19 05:45 Add Manual Diff YES 02/09/19 05:45 Neutrophils % 53.0 % (40.0-80.0) 02/09/19 05:45 Band Neutrophils % 0 % (0-10) 02/09/19 05:45 Lymphocytes % 23.6 % (20.0-50.0) 02/09/19 05:45 Monocytes % 22.9 % (2.0-10.0) H 02/09/19 05:45 Eosinophils % 0.5 % (0.0-5.0) 02/09/19 05:45 Basophils % 0.0 % (0.0-2.0) 02/09/19 05:45 Neutrophils (Manual) 50 % (40-80) 02/09/19 05:45 Lymphocytes 27 % (20-50) 02/09/19 05:45 Monocytes 23 % (2-10) H 02/09/19 05:45 Eosinophils 0 % (0-5) 02/09/19 05:45 Basophils 0 % (0-3) 02/09/19 05:45 Platelet Estimate ADEQUATE (NORMAL) 02/09/19 05:45 PT 10.1 SECONDS (9.5-11.5) 02/07/19 18:25 INR 0.97 (0.5-1.4) 02/07/19 18:25 PTT (Actin FS) 24.8 SECONDS (26.0-38.0) L 02/07/19 18:25 Sodium 135 mEq/L (136-145) L 02/09/19 05:45 Potassium 4.0 mEq/L (3.5-5.1) 02/09/19 05:45 Chloride 107 mEq/L (98-107) 02/09/19 05:45 Carbon Dioxide 19.0 mEq/L (21.0-31.0) L 02/09/19 05:45 Anion Gap 13.0 (7.0-16.0) 02/09/19 05:45 BUN 8 mg/dL (7-25) 02/09/19 05:45 Creatinine 0.4 mg/dL (0.6-1.2) L 02/09/19 05:45 Est GFR ( Amer) > 60.0 ml/min (>90) 02/09/19 05:45 Est GFR (Non-Af Amer) > 60.0 ml/min 02/09/19 05:45 BUN/Creatinine Ratio 20.0 02/09/19 05:45 Glucose 113 mg/dL (70-105) H 02/09/19 05:45 POC Glucose 119 MG/DL (70 - 105) H 02/08/19 18:35 Whole Bld Lactic Acid 1.20 mmol/L (0.60-1.99) 02/07/19 18:25 Calcium 8.6 mg/dL (8.6-10.3) 02/09/19 05:45 Magnesium 2.7 mg/dL (1.9-2.7) 02/09/19 05:45 Total Bilirubin 0.2 mg/dL (0.3-1.0) L 02/08/19 06:10 AST 13 U/L (13-39) 02/08/19 06:10 ALT 6 U/L (7-52) L 02/08/19 06:10 Alkaline Phosphatase 36 U/L (34-104) 02/08/19 06:10 Creatine Kinase 15 U/L (30-223) L 02/07/19 18:25 Troponin I < 0.01 ng/mL (0.01-0.05) L 02/07/19 18:25 Total Protein 6.0 gm/dL (6.0-8.3) 02/08/19 06:10 Albumin 3.8 gm/dL (3.7-5.3) 02/08/19 06:10 Globulin 2.2 gm/dL 02/08/19 06:10 Albumin/Globulin Ratio 1.7 (1.0-1.8) 02/08/19 06:10 Triglycerides 30 mg/dL (<150) 02/08/19 06:10 Cholesterol 127 mg/dL (<200) 02/08/19 06:10 LDL Cholesterol Direct 48 mg/dL (75-193) L 02/08/19 06:10 HDL Cholesterol 61 mg/dL (23-92) 02/08/19 06:10 TSH 6.90 uIU/ml (0.34-5.60) H 02/08/19 06:10 Serum , Qual NEGATIVE (NEGATIVE) 02/07/19 18:25 - Physical Exam Vitals and I&O: Vital Signs Temp 96.9 F 02/09/19 03:59 Pulse 92 02/09/19 03:59 Resp 18 02/09/19 08:00 BP 144/85 02/09/19 03:59 Pulse Ox 100 02/09/19 03:59 Intake & Output 02/08/19 02/09/19 02/09/19 18:59 06:59 18:59 Intake Total 1040 Output Total 2 Balance 1040 -2 Weight (lbs) 34.927 kg 39.871 kg Intake: Intake, IV Amount 1000 D5-0.45NS 1,000 ml @ 75 1000 mls/hr IV .[id number] [facility] Rx #:[id number] Other 40 Output: Urine 2 Other: # Voids 3 2 # Bowel Movements 0 Stool Characteristics Soft Weight Source Bedscale Bedscale Active Medications: Current Medications Bisacodyl (Dulcolax 10 Mg Supp) 10 mg RC DAILY [facility] Stop: 04/09/19 11:29 Last Admin: 02/09/19 08:30 Dose: Not Given Divalproex Sodium (Depakote Dr) 500 mg PO BID [facility]; Protocol Stop: 04/10/19 09:14 Docusate Sodium (Colace) 250 mg PO BID [facility] Stop: 04/09/19 16:59 Last Admin: 02/09/19 08:29 Dose: 250 mg Dextrose/Sodium Chloride (D5-0.45ns) 1,000 mls @ 75 mls/hr IV .[id number] [facility] Stop: 04/08/19 21:52 Last Admin: 02/08/19 18:17 Dose: 75 mls/hr Levofloxacin (Levaquin Pb) 500 mg in 100 mls @ 100 mls/hr IV Q24HR [facility] Stop: 04/08/19 21:52 Last Admin: 02/08/19 21:10 Dose: 100 mls/hr Lactobacillus Rhamnosus (Culturelle 15b) 1 each PO DAILY [facility] Stop: 04/10/19 11:59 Lamotrigine (Lamictal) 75 mg PO DAILY [facility]; Protocol Stop: 04/10/19 09:14 Megestrol Acetate (Megace) 400 mg PO BID [facility] Stop: 04/10/19 09:59 Metoclopramide HCl (Reglan) 5 mg PO ACHS [facility] Stop: 04/10/19 11:29 Mineral Oil (Mineral Oil 30 Ml) 30 ml PO BID PRN PRN Reason: Constipation Stop: 02/11/19 17:29 Miscellaneous (Probiotic Screen) 1 ea [facility] PRN PRN PRN Reason: PROTOCOL Stop: 04/10/19 09:08 Pantoprazole Sodium (Protonix) 40 mg IVP DAILY [facility] Stop: 04/09/19 08:59 Last Admin: 02/09/19 08:29 Dose: 40 mg Sodium Phosphate (Fleet Enema) 135 ml RC PRN PRN PRN Reason: Constipation Stop: 04/08/19 21:52 General: No acute distress Cardiovascular: Regular rate, Normal S1, Normal S2 Lungs: Clear to auscultation Abdomen: Bowel sounds, Soft, no Tender - Procedures Procedures: Procedures Procedure Code Date EMERGENCY DEPT VISIT 67065 12/04/11 INJECT/INFUSE NEC 99.29 04/22/09 Assessment/Plan - Assessment Assessment: 1, Fecal impaction/Constipation 2. Abdominal pain - Plan Plan: 1, Fecal impaction/Constipation. iMPROVING CONTINUE WITH BOWEL PREP Maintenance stool softners 2. Abdominal pain Secondary to above Resolved
[2019-02-09] MEDS: Lactobacillus Rhamnosus GG 15 Billion CFU CAP.SPRINK PO SCH (12:27)
--- NOTE | 2019-02-09 15:45 | Consultation ---
DATE OF CONSULTATION: 02/08/2019 REASON FOR CONSULTATION: Abdominal pain and abdominal distention. HISTORY OF PRESENT ILLNESS: This consult was obtained through the courtesy of Dr. Mcdonald for this 38-year-old with history of mental delay, admitted to the hospital because of abdominal distention and abdominal pain. The patient is not communicating. According to the nurse, her abdomen is distended. She was sent here for further evaluation. PAST MEDICAL HISTORY: Mental retardation, scoliosis, history of pneumonia, history of quadriplegia. PAST SURGICAL HISTORY: Not known. SOCIAL HISTORY: Nonsmoker, alcoholic, IV drug abuser. FAMILY HISTORY: Noncontributory. ALLERGIES: No known drug allergies. REVIEW OF SYSTEMS: Unobtainable. MEDICATIONS: The patient is on Dulcolax, Colace, Levaquin, Reglan, mineral oil, pantoprazole, Fleets enema. PHYSICAL EXAMINATION: GENERAL: The patient is awake, nonverbal, no acute distress. VITAL SIGNS: Blood pressure is 117/67, heart rate 99, respiratory rate 18, temperature is 97.4. HEAD AND NECK: Pupils reactive to light. Extraocular muscles intact. Sclerae are anicteric. Conjunctivae not pale. Oral cavity, no lesion. NECK: Supple. CHEST: Good air entry. LUNGS: Clear to auscultation. CARDIOVASCULAR: Regular rate and rhythm. No murmur or gallop. ABDOMEN: Soft, positive bowel sounds, not tender. EXTREMITIES: Lower extremities are contracted. CENTRAL NERVOUS SYSTEM: Unable to evaluate. LABORATORY DATA: White blood cells were normal, H and H was 12.5 and 37.2, platelets are 178. Chemistry showed normal LFTs. Low troponin. Albumin is 3.6. PT is normal. The patient also had a KUB, which showed fecal material filling the colon. IMPRESSION: A 38-year-old with mental retardation, now with fecal impaction, increase stool amount. ASSESSMENT AND PLAN: 1. Increased stool content of the colon. This needs to be prepped better, so we will allow her to use Colace and docusate sodium, but then we will give the patient magnesium citrate, mineral oil, see how she is going to respond to that. Also, we will try daily basis of mineral oil on top with mag citrate. 2. Regular treatment of hemorrhoids if needed. 3. Once the patient started having bowel movement, then we will allow feeding and then further recommendations to follow. 4. Other medical problems such as mental retardation, cerebrovascular accident, etc., as per Dr. Mcdonald. Thank you, Dr. Mcdonald for allowing me to participate in the care of this patient. If you have any further questions, please let me know. JOB# [id number]
[2019-02-09] MEDS: Levofloxacin 500mg/100mL 500 MG/100 ML BAG IV SCH (21:31)
[2019-02-09] MEDS: D5-0.45NS 1,000 ML IV SCH (21:33)
[2019-02-10 05:42] LABS: HEMATOCRIT 38.2 % (41.0-60); HEMOGLOBIN 12.9 gm/dL (12-16); LYMPHOCYTE ABSOLUTE 1.7 Th/cmm (1.5-3.0); MEAN CELL VOLUME 97.9 fl (81-100); MEAN CORPUSCULAR HGB CONC 33.7 pg (28.0-36.0); MEAN PLATELET VOLUME 8.3 fl; MONOCYTE ABSOLUTE 1.3 Th/cmm (0.3-1.0); NEUTROPHILE ABSOLUTE 3.2 Th/cmm (1.8-8.0); PLATELET COUNT 136 Th/cmm (150-400); RED CELL DISTRIBUTION WIDTH 12.5 % (11.5-20.0); WHITE BLOOD COUNT 6.2 Th/cmm (4.8-10.8)
[2019-02-10 05:49] LABS: ANION GAP 13.3 (7.0-16.0); BUN - UREA NITROGEN 6 mg/dL (7-25); CALCIUM SERUM 8.8 mg/dL (8.6-10.3); CARBON DIOXIDE 21.7 mEq/L (21.0-31.0); CHLORIDE 104 mEq/L (98-107); CREATININE - SERUM 0.3 mg/dL (0.6-1.2); GFR AFRICAN-AMERICAN > 60.0 ml/min (>90); GFR NON AFRICAN-AMERICAN > 60.0 ml/min; GLUCOSE 116 mg/dL (70-105); SODIUM SERUM 135 mEq/L (136-145)
[2019-02-10 07:28] LABS: BAND NEUTROPHILE 3 % (0-10); BASOPHIL 0 % (0-3); EOSINOPHIL 1 % (0-5); LYMPHOCYTE 33 % (20-50); MONOCYTE 12 % (2-10); NEUTROPHILS 50 % (40-80)
[2019-02-10] MEDS: Lactobacillus Rhamnosus GG 15 Billion CFU CAP.SPRINK PO SCH (08:50)
--- NOTE | 2019-02-10 09:24 | GI Progress Note ---
Subjective - Review of Systems Service Date: 02/10/19 Subjective: Had a BM last night, no other events Objective - Results Result Diagrams: 02/10/19 05:10 02/10/19 05:10 Recent Labs: Laboratory Last Values WBC 6.2 Th/cmm (4.8-10.8) 02/10/19 05:10 RBC 3.90 Mil/cmm (3.80-5.10) 02/10/19 05:10 Hgb 12.9 gm/dL (12-16) 02/10/19 05:10 Hct 38.2 % (41.0-60) L 02/10/19 05:10 MCV 97.9 fl (81-100) 02/10/19 05:10 MCH 33.0 pg (27.0-31.0) H 02/10/19 05:10 MCHC Differential 33.7 pg (28.0-36.0) 02/10/19 05:10 RDW 12.5 % (11.5-20.0) 02/10/19 05:10 Plt Count 136 Th/cmm (150-400) L 02/10/19 05:10 MPV 8.3 fl 02/10/19 05:10 Add Manual Diff YES 02/10/19 05:10 Neutrophils % 53.0 % (40.0-80.0) 02/09/19 05:45 Band Neutrophils % 3 % (0-10) 02/10/19 05:10 Lymphocytes % 23.6 % (20.0-50.0) 02/09/19 05:45 Monocytes % 22.9 % (2.0-10.0) H 02/09/19 05:45 Eosinophils % 0.5 % (0.0-5.0) 02/09/19 05:45 Basophils % 0.0 % (0.0-2.0) 02/09/19 05:45 Neutrophils (Manual) 50 % (40-80) 02/10/19 05:10 Lymphocytes 33 % (20-50) 02/10/19 05:10 Monocytes 12 % (2-10) H 02/10/19 05:10 Eosinophils 1 % (0-5) 02/10/19 05:10 Basophils 0 % (0-3) 02/10/19 05:10 Platelet Estimate ADEQUATE (NORMAL) 02/09/19 05:45 PT 10.1 SECONDS (9.5-11.5) 02/07/19 18:25 INR 0.97 (0.5-1.4) 02/07/19 18:25 PTT (Actin FS) 24.8 SECONDS (26.0-38.0) L 02/07/19 18:25 Sodium 135 mEq/L (136-145) L 02/10/19 05:10 Potassium 4.0 mEq/L (3.5-5.1) 02/10/19 05:10 Chloride 104 mEq/L (98-107) 02/10/19 05:10 Carbon Dioxide 21.7 mEq/L (21.0-31.0) 02/10/19 05:10 Anion Gap 13.3 (7.0-16.0) 02/10/19 05:10 BUN 6 mg/dL (7-25) L 02/10/19 05:10 Creatinine 0.3 mg/dL (0.6-1.2) L 02/10/19 05:10 Est GFR ( Amer) > 60.0 ml/min (>90) 02/10/19 05:10 Est GFR (Non-Af Amer) > 60.0 ml/min 02/10/19 05:10 BUN/Creatinine Ratio 20.0 02/10/19 05:10 Glucose 116 mg/dL (70-105) H 02/10/19 05:10 POC Glucose 119 MG/DL (70 - 105) H 02/08/19 18:35 Whole Bld Lactic Acid 1.20 mmol/L (0.60-1.99) 02/07/19 18:25 Calcium 8.8 mg/dL (8.6-10.3) 02/10/19 05:10 Magnesium 2.7 mg/dL (1.9-2.7) 02/09/19 05:45 Total Bilirubin 0.2 mg/dL (0.3-1.0) L 02/08/19 06:10 AST 13 U/L (13-39) 02/08/19 06:10 ALT 6 U/L (7-52) L 02/08/19 06:10 Alkaline Phosphatase 36 U/L (34-104) 02/08/19 06:10 Creatine Kinase 15 U/L (30-223) L 02/07/19 18:25 Troponin I < 0.01 ng/mL (0.01-0.05) L 02/07/19 18:25 Total Protein 6.0 gm/dL (6.0-8.3) 02/08/19 06:10 Albumin 3.8 gm/dL (3.7-5.3) 02/08/19 06:10 Globulin 2.2 gm/dL 02/08/19 06:10 Albumin/Globulin Ratio 1.7 (1.0-1.8) 02/08/19 06:10 Triglycerides 30 mg/dL (<150) 02/08/19 06:10 Cholesterol 127 mg/dL (<200) 02/08/19 06:10 LDL Cholesterol Direct 48 mg/dL (75-193) L 02/08/19 06:10 HDL Cholesterol 61 mg/dL (23-92) 02/08/19 06:10 TSH 6.90 uIU/ml (0.34-5.60) H 02/08/19 06:10 Serum , Qual NEGATIVE (NEGATIVE) 02/07/19 18:25 - Physical Exam Vitals and I&O: Vital Signs Temp 97.3 F 02/10/19 08:08 Pulse 90 02/10/19 08:08 Resp 18 02/10/19 08:08 BP 150/79 02/10/19 08:08 Pulse Ox 96 02/10/19 08:08 Intake & Output 02/09/19 02/10/19 02/10/19 18:59 06:59 18:59 Intake Total 1045 Output Total 1 2 Balance 1044 -2 Weight (lbs) 39.871 kg 39.463 kg Intake: Intake, IV Amount 1000 D5-0.45NS 1,000 ml @ 75 1000 mls/hr IV .[id number] [facility] Rx #:[id number] Oral 45 Output: Urine 2 Stool 1 Other: # Voids 3 1 # Bowel Movements 2 Stool Characteristics Soft Soft Weight Source Bedscale Bedscale Active Medications: Current Medications Bisacodyl (Dulcolax 10 Mg Supp) 10 mg RC DAILY [facility] Stop: 04/09/19 11:29 Last Admin: 02/10/19 08:47 Dose: Not Given Divalproex Sodium (Depakote Dr) 500 mg PO BID [facility]; Protocol Stop: 04/10/19 09:14 Docusate Sodium (Colace) 250 mg PO BID [facility] Stop: 04/09/19 16:59 Last Admin: 02/10/19 08:50 Dose: 250 mg Dextrose/Sodium Chloride (D5-0.45ns) 1,000 mls @ 75 mls/hr IV .[id number] [facility] Stop: 04/08/19 21:52 Last Admin: 02/09/19 21:33 Dose: 75 mls/hr Levofloxacin (Levaquin Pb) 500 mg in 100 mls @ 100 mls/hr IV Q24HR [facility] Stop: 04/08/19 21:52 Last Admin: 02/09/19 21:31 Dose: 100 mls/hr Lactobacillus Rhamnosus (Culturelle 15b) 1 each PO DAILY [facility] Stop: 04/10/19 11:59 Last Admin: 02/10/19 08:50 Dose: 1 each Lamotrigine (Lamictal) 75 mg PO DAILY [facility]; Protocol Stop: 04/10/19 09:14 Megestrol Acetate (Megace) 400 mg PO BID [facility] Stop: 04/10/19 09:59 Last Admin: 02/10/19 08:50 Dose: 400 mg Metoclopramide HCl (Reglan) 5 mg PO ACHS [facility] Stop: 04/10/19 11:29 Last Admin: 02/10/19 06:30 Dose: 5 mg Mineral Oil (Mineral Oil 30 Ml) 30 ml PO DAILY PRN PRN Reason: Constipation Stop: 04/09/19 17:29 Miscellaneous (Probiotic Screen) 1 ea PRN PRN PRN Reason: PROTOCOL Stop: 04/10/19 09:08 Pantoprazole Sodium (Protonix) 40 mg IVP DAILY [facility] Stop: 04/09/19 08:59 Last Admin: 02/10/19 08:50 Dose: 40 mg Sodium Phosphate (Fleet Enema) 135 ml RC PRN PRN PRN Reason: Constipation Stop: 04/08/19 21:52 General: Alert, No acute distress Cardiovascular: Regular rate Abdomen: Bowel sounds, Soft, no Tender, no Hepatomegaly, no Rebound, no Mass, no Guarding, no Drain - Procedures Procedures: Procedures Procedure Code Date EMERGENCY DEPT VISIT 84731 12/04/11 INJECT/INFUSE NEC 99.29 04/22/09 Assessment/Plan - Assessment Assessment: 1, Fecal impaction/Constipation 2. Abdominal pain Plan: 1, Fecal impaction/Constipation. iMPROVING - Current regimen is colace, dulcolax, and mineral oil. This appears to be working - Enema prn 2. Abdominal pain Secondary to above Resolved
--- NOTE | 2019-02-10 16:49 | General Progress Note ---
Subjective - Review of Systems Service Date: 02/10/19 Subjective: awake, quiet Objective - Results Result Diagrams: 02/10/19 05:10 02/10/19 05:10 Recent Labs: Laboratory Last Values WBC 6.2 Th/cmm (4.8-10.8) 02/10/19 05:10 RBC 3.90 Mil/cmm (3.80-5.10) 02/10/19 05:10 Hgb 12.9 gm/dL (12-16) 02/10/19 05:10 Hct 38.2 % (41.0-60) L 02/10/19 05:10 MCV 97.9 fl (81-100) 02/10/19 05:10 MCH 33.0 pg (27.0-31.0) H 02/10/19 05:10 MCHC Differential 33.7 pg (28.0-36.0) 02/10/19 05:10 RDW 12.5 % (11.5-20.0) 02/10/19 05:10 Plt Count 136 Th/cmm (150-400) L 02/10/19 05:10 MPV 8.3 fl 02/10/19 05:10 Add Manual Diff YES 02/10/19 05:10 Neutrophils % 53.0 % (40.0-80.0) 02/09/19 05:45 Band Neutrophils % 3 % (0-10) 02/10/19 05:10 Lymphocytes % 23.6 % (20.0-50.0) 02/09/19 05:45 Monocytes % 22.9 % (2.0-10.0) H 02/09/19 05:45 Eosinophils % 0.5 % (0.0-5.0) 02/09/19 05:45 Basophils % 0.0 % (0.0-2.0) 02/09/19 05:45 Neutrophils (Manual) 50 % (40-80) 02/10/19 05:10 Lymphocytes 33 % (20-50) 02/10/19 05:10 Monocytes 12 % (2-10) H 02/10/19 05:10 Eosinophils 1 % (0-5) 02/10/19 05:10 Basophils 0 % (0-3) 02/10/19 05:10 Platelet Estimate ADEQUATE (NORMAL) 02/09/19 05:45 PT 10.1 SECONDS (9.5-11.5) 02/07/19 18:25 INR 0.97 (0.5-1.4) 02/07/19 18:25 PTT (Actin FS) 24.8 SECONDS (26.0-38.0) L 02/07/19 18:25 Sodium 135 mEq/L (136-145) L 02/10/19 05:10 Potassium 4.0 mEq/L (3.5-5.1) 02/10/19 05:10 Chloride 104 mEq/L (98-107) 02/10/19 05:10 Carbon Dioxide 21.7 mEq/L (21.0-31.0) 02/10/19 05:10 Anion Gap 13.3 (7.0-16.0) 02/10/19 05:10 BUN 6 mg/dL (7-25) L 02/10/19 05:10 Creatinine 0.3 mg/dL (0.6-1.2) L 02/10/19 05:10 Est GFR ( Amer) > 60.0 ml/min (>90) 02/10/19 05:10 Est GFR (Non-Af Amer) > 60.0 ml/min 02/10/19 05:10 BUN/Creatinine Ratio 20.0 02/10/19 05:10 Glucose 116 mg/dL (70-105) H 02/10/19 05:10 POC Glucose 119 MG/DL (70 - 105) H 02/08/19 18:35 Whole Bld Lactic Acid 1.20 mmol/L (0.60-1.99) 02/07/19 18:25 Calcium 8.8 mg/dL (8.6-10.3) 02/10/19 05:10 Magnesium 2.7 mg/dL (1.9-2.7) 02/09/19 05:45 Total Bilirubin 0.2 mg/dL (0.3-1.0) L 02/08/19 06:10 AST 13 U/L (13-39) 02/08/19 06:10 ALT 6 U/L (7-52) L 02/08/19 06:10 Alkaline Phosphatase 36 U/L (34-104) 02/08/19 06:10 Creatine Kinase 15 U/L (30-223) L 02/07/19 18:25 Troponin I < 0.01 ng/mL (0.01-0.05) L 02/07/19 18:25 Total Protein 6.0 gm/dL (6.0-8.3) 02/08/19 06:10 Albumin 3.8 gm/dL (3.7-5.3) 02/08/19 06:10 Globulin 2.2 gm/dL 02/08/19 06:10 Albumin/Globulin Ratio 1.7 (1.0-1.8) 02/08/19 06:10 Triglycerides 30 mg/dL (<150) 02/08/19 06:10 Cholesterol 127 mg/dL (<200) 02/08/19 06:10 LDL Cholesterol Direct 48 mg/dL (75-193) L 02/08/19 06:10 HDL Cholesterol 61 mg/dL (23-92) 02/08/19 06:10 TSH 6.90 uIU/ml (0.34-5.60) H 02/08/19 06:10 Serum , Qual NEGATIVE (NEGATIVE) 02/07/19 18:25 - Physical Exam Vitals and I&O: Vital Signs Temp 96.7 F 02/10/19 15:34 Pulse 90 02/10/19 15:34 Resp 18 02/10/19 15:34 BP 101/60 02/10/19 15:34 Pulse Ox 96 02/10/19 15:34 Intake & Output 02/09/19 02/10/19 02/10/19 18:59 06:59 18:59 Intake Total 1045 Output Total 1 2 Balance 1044 -2 Weight (lbs) 39.871 kg 39.463 kg Intake: Intake, IV Amount 1000 D5-0.45NS 1,000 ml @ 75 1000 mls/hr IV .[id number] REPLACED BY [facility] Rx #:[id number] Oral 45 Output: Urine 2 Stool 1 Other: # Voids 3 1 # Bowel Movements 2 Stool Characteristics Soft Soft Soft Weight Source Bedscale Bedscale Active Medications: Current Medications Bisacodyl (Dulcolax 10 Mg Supp) 10 mg RC DAILY [facility] Stop: 04/09/19 11:29 Last Admin: 02/10/19 08:47 Dose: Not Given Divalproex Sodium (Depakote Dr) 500 mg PO BID [facility] BY [facility]; Protocol Stop: 04/10/19 09:14 Docusate Sodium (Colace) 250 mg PO BID [facility] Stop: 04/09/19 16:59 Last Admin: 02/10/19 08:50 Dose: 250 mg Dextrose/Sodium Chloride (D5-0.45ns) 1,000 mls @ 75 mls/hr IV .[id number] [facility] Stop: 04/08/19 21:52 Last Admin: 02/09/19 21:33 Dose: 75 mls/hr Levofloxacin (Levaquin Pb) 500 mg in 100 mls @ 100 mls/hr IV Q24HR [facility] Stop: 04/08/19 21:52 Last Admin: 02/09/19 21:31 Dose: 100 mls/hr Lactobacillus Rhamnosus (Culturelle 15b) 1 each PO DAILY [facility] Stop: 04/10/19 11:59 Last Admin: 02/10/19 08:50 Dose: 1 each Lamotrigine (Lamictal) 75 mg PO DAILY [facility]; Protocol Stop: 04/10/19 09:14 Megestrol Acetate (Megace) 400 mg PO BID [facility] BY [facility] Stop: 04/10/19 09:59 Last Admin: 02/10/19 08:50 Dose: 400 mg Metoclopramide HCl (Reglan) 5 mg PO ACHS [facility]PL[facility]ED BY [facility] Stop: 04/10/19 11:29 Last Admin: 02/10/19 11:23 Dose: 5 mg Mineral Oil (Mineral Oil 30 Ml) 30 ml PO DAILY PRN PRN Reason: Constipation Stop: 04/09/19 17:29 Miscellaneous (Probiotic Screen) 1 ea MC PRN PRN PRN Reason: PROTOCOL Stop: 04/10/19 09:08 Pantoprazole Sodium (Protonix) 40 mg IVP DAILY [facility] BY [facility] Stop: 04/09/19 08:59 Last Admin: 02/10/19 08:50 Dose: 40 mg Sodium Phosphate (Fleet Enema) 135 ml RC PRN PRN PRN Reason: Constipation Stop: 04/08/19 21:52 General: Alert, No acute distress HEENT: Atraumatic, Mucous membr. moist/pink Neck: Supple, +2 carotid pulse wo bruit Cardiovascular: Regular rate, Normal S1, Normal S2 Lungs: Clear to auscultation Abdomen: Bowel sounds, Soft, no Tender, no Hepatomegaly, no Rebound, no Mass, no Guarding, no Drain Extremities: no Edema Neurological: Sensation intact Skin: no Rash Psych/Mental Status: Mood NL - Procedures Procedures: Procedures Procedure Code Date EMERGENCY DEPT VISIT 78153 12/04/11 INJECT/INFUSE NEC 99.29 04/22/09 Assessment/Plan - Assessment Assessment: Fecal Impaction Abd Distension/Pain Profound Intel Disability Functional quad S/P CVA Severe Scoliosis - Plan Plan: Lab - Result Diagrams 02/10/19 05:10 02/10/19 05:10 Current Medications Bisacodyl (Dulcolax 10 Mg Supp) 10 mg RC DAILY [facility] BY [facility] Stop: 04/09/19 11:29 Last Admin: 02/10/19 08:47 Dose: Not Given Divalproex Sodium (Depakote Dr) 500 mg PO BID REPLACED BY [facility]; Protocol Stop: 04/10/19 09:14 Docusate Sodium (Colace) 250 mg PO BID [facility]PL[facility]ED BY [facility] Stop: 04/09/19 16:59 Last Admin: 02/10/19 08:50 Dose: 250 mg Dextrose/Sodium Chloride (D5-0.45ns) 1,000 mls @ 75 mls/hr IV .[id number] REPLACED BY [facility] Stop: 04/08/19 21:52 Last Admin: 02/09/19 21:33 Dose: 75 mls/hr Levofloxacin (Levaquin Pb) 500 mg in 100 mls @ 100 mls/hr IV Q24HR REPL[facility]ED BY [facility] Stop: 04/08/19 21:52 Last Admin: 02/09/19 21:31 Dose: 100 mls/hr Lactobacillus Rhamnosus (Culturelle 15b) 1 each PO DAILY [facility] BY [facility] Stop: 04/10/19 11:59 Last Admin: 02/10/19 08:50 Dose: 1 each Lamotrigine (Lamictal) 75 mg PO DAILY [facility] BY [facility]; Protocol Stop: 04/10/19 09:14 Megestrol Acetate (Megace) 400 mg PO BID [facility]ED BY [facility] Stop: 04/10/19 09:59 Last Admin: 02/10/19 08:50 Dose: 400 mg Metoclopramide HCl (Reglan) 5 mg PO ACHS REPLACED BY [facility] Stop: 04/10/19 11:29 Last Admin: 02/10/19 11:23 Dose: 5 mg Mineral Oil (Mineral Oil 30 Ml) 30 ml PO DAILY PRN PRN Reason: Constipation Stop: 04/09/19 17:29 Miscellaneous (Probiotic Screen) 1 ea MC PRN PRN PRN Reason: PROTOCOL Stop: 04/10/19 09:08 Pantoprazole Sodium (Protonix) 40 mg IVP DAILY [facility] Stop: 04/09/19 08:59 Last Admin: 02/10/19 08:50 Dose: 40 mg Sodium Phosphate (Fleet Enema) 135 ml RC PRN PRN PRN Reason: Constipation Stop: 04/08/19 21:52 Lab - Result Diagrams 02/10/19 05:10 02/10/19 05:10 Pt. continues to have good BM'S continue laxatives prn on IVF encourage po intake Nutritional Asmnt/Malnutr-PDOC - Dietary Evaluation Malnutrition Findings (Please click <Entered> for more info): Nutritional Asmnt/Malnutrition Start: 02/08/19 15: 26 Text: Status: Complete Freq: Protocol: Document 02/08/19 15:29 LCHENG (Rec: 02/08/19 15:58 LCHENG [email or web address]) Nutritional Asmnt/Malnutrition Patient General Information Nutritional Screening High Risk Diagnosis abdominal distention and congestion Pertinent Medical Hx/Surgical Hx dyslipidemia, seizure, dementia Subjective Information Pt seen lying in bed, confused . Per nurse pt was not eating at shelter. Pt is on NPO status. Current Diet Order/ Nutrition Support NPO Pertinent Medications D5-0.45ns, colace, levaquin, reglan, protonix Pertinent Labs 5/2 Cr 0.4, Mg 1.7 Nutritional Hx/Data Height 1.47 m Height (Calculated Centimeters) 147.3 Current Weight (lbs) 34.927 kg Weight (Calculated Kilograms) 34.9 Weight (Calculated Grams) 76834.6 [place] Body Weight 96 Body Mass Index (BMI) 16.0 Weight Status Underweight GI Symptoms GI Symptoms None Last BM 5/2 Difficult in: None Skin Integrity/Comment: intact lucy 9 Current %PO Negligible < 25% Estimated Nutritional Goals BEE in Kcals: Using Current wt Calories/Kcals/Kg 30-35 Kcals Calculated 8941-0959 Protein: Using Current wt Protein g/k.2-1.4 Protein Calculated 42-49 Fluid: ml 1050-1225ml (1ml/kcal) Nutritional Problem No current Nutrition Prob Problem N/A Malnutrition Related to Morbid Obesity Malnutrition related to morbid obesity No Intervention/Recommendation Comments 1. Monitor NPO stautiesha. Start oral diet when medically approriate. Reconmend swallow eval as needed. 2. Monitor PO intake, wt, labs and skin integrity 3. F/U as high risk in 2-3 days Expected Outcomes/Goals Expected Outcomes/Goals 1. PO intake to meet at least 75% of nutritional needs. 2. Wt stability, skin to remain intact, labs to approach WNL.
[2019-02-10] MEDS: Levofloxacin 500mg/100mL 500 MG/100 ML BAG IV SCH (20:57)
[2019-02-11 06:24] LABS: % EOSINOPHILS 0.8 % (0.0-5.0); % LYMPHOCYTES 17.1 % (20.0-50.0); % NEUTROPHILS 70.1 % (40.0-80.0); EOSINOPHILE ABSOLUTE 0.1 Th/cmm (0.1-0.4); HEMATOCRIT 36.7 % (41.0-60); HEMOGLOBIN 12.5 gm/dL (12-16); LYMPHOCYTE ABSOLUTE 1.7 Th/cmm (1.5-3.0); MEAN CELL VOLUME 97.1 fl (81-100); MEAN CORPUSCULAR HEMOGLOBIN 33.2 pg (27.0-31.0); MEAN CORPUSCULAR HGB CONC 34.1 pg (28.0-36.0); MEAN PLATELET VOLUME 7.9 fl; MONOCYTE ABSOLUTE 1.2 Th/cmm (0.3-1.0); NEUTROPHILE ABSOLUTE 7.1 Th/cmm (1.8-8.0); PLATELET COUNT 146 Th/cmm (150-400); RED BLOOD COUNT 3.78 Mil/cmm (3.80-5.10); RED CELL DISTRIBUTION WIDTH 12.4 % (11.5-20.0); WHITE BLOOD COUNT 10.1 Th/cmm (4.8-10.8)
[2019-02-11 06:34] LABS: ANION GAP 10.2 (7.0-16.0); BUN - UREA NITROGEN 7 mg/dL (7-25); CARBON DIOXIDE 22.7 mEq/L (21.0-31.0); CHLORIDE 108 mEq/L (98-107); CREATININE - SERUM 0.3 mg/dL (0.6-1.2); GFR AFRICAN-AMERICAN > 60.0 ml/min (>90); GFR NON AFRICAN-AMERICAN > 60.0 ml/min; GLUCOSE 106 mg/dL (70-105); POTASSIUM SERUM 3.9 mEq/L (3.5-5.1); SODIUM SERUM 137 mEq/L (136-145)
[2019-02-11] MEDS: Lactobacillus Rhamnosus GG 15 Billion CFU CAP.SPRINK PO SCH (08:38)
[2019-02-11] MEDS: D5-0.45NS 1,000 ML IV SCH ×2 (08:39→22:24)
--- NOTE | 2019-02-11 11:38 | GI Progress Note ---
Subjective - Review of Systems Service Date: 02/11/19 Subjective: One BM is logged, not eating much Objective - Results Result Diagrams: 02/11/19 06:05 02/11/19 06:05 Recent Labs: Laboratory Last Values WBC 10.1 Th/cmm (4.8-10.8) 02/11/19 06:05 RBC 3.78 Mil/cmm (3.80-5.10) L 02/11/19 06:05 Hgb 12.5 gm/dL (12-16) 02/11/19 06:05 Hct 36.7 % (41.0-60) L 02/11/19 06:05 MCV 97.1 fl (81-100) 02/11/19 06:05 MCH 33.2 pg (27.0-31.0) H 02/11/19 06:05 MCHC Differential 34.1 pg (28.0-36.0) 02/11/19 06:05 RDW 12.4 % (11.5-20.0) 02/11/19 06:05 Plt Count 146 Th/cmm (150-400) L 02/11/19 06:05 MPV 7.9 fl 02/11/19 06:05 Add Manual Diff YES 02/10/19 05:10 Neutrophils % 70.1 % (40.0-80.0) 02/11/19 06:05 Band Neutrophils % 3 % (0-10) 02/10/19 05:10 Lymphocytes % 17.1 % (20.0-50.0) L 02/11/19 06:05 Monocytes % 12.0 % (2.0-10.0) H 02/11/19 06:05 Eosinophils % 0.8 % (0.0-5.0) 02/11/19 06:05 Basophils % 0.0 % (0.0-2.0) 02/11/19 06:05 Neutrophils (Manual) 50 % (40-80) 02/10/19 05:10 Lymphocytes 33 % (20-50) 02/10/19 05:10 Monocytes 12 % (2-10) H 02/10/19 05:10 Eosinophils 1 % (0-5) 02/10/19 05:10 Basophils 0 % (0-3) 02/10/19 05:10 Platelet Estimate ADEQUATE (NORMAL) 02/09/19 05:45 PT 10.1 SECONDS (9.5-11.5) 02/07/19 18:25 INR 0.97 (0.5-1.4) 02/07/19 18:25 PTT (Actin FS) 24.8 SECONDS (26.0-38.0) L 02/07/19 18:25 Sodium 137 mEq/L (136-145) 02/11/19 06:05 Potassium 3.9 mEq/L (3.5-5.1) 02/11/19 06:05 Chloride 108 mEq/L (98-107) H 02/11/19 06:05 Carbon Dioxide 22.7 mEq/L (21.0-31.0) 02/11/19 06:05 Anion Gap 10.2 (7.0-16.0) 02/11/19 06:05 BUN 7 mg/dL (7-25) 02/11/19 06:05 Creatinine 0.3 mg/dL (0.6-1.2) L 02/11/19 06:05 Est GFR ( Amer) > 60.0 ml/min (>90) 02/11/19 06:05 Est GFR (Non-Af Amer) > 60.0 ml/min 02/11/19 06:05 BUN/Creatinine Ratio 23.3 02/11/19 06:05 Glucose 106 mg/dL (70-105) H 02/11/19 06:05 POC Glucose 119 MG/DL (70 - 105) H 02/08/19 18:35 Whole Bld Lactic Acid 1.20 mmol/L (0.60-1.99) 02/07/19 18:25 Calcium 9.0 mg/dL (8.6-10.3) 02/11/19 06:05 Magnesium 2.7 mg/dL (1.9-2.7) 02/09/19 05:45 Total Bilirubin 0.2 mg/dL (0.3-1.0) L 02/08/19 06:10 AST 13 U/L (13-39) 02/08/19 06:10 ALT 6 U/L (7-52) L 02/08/19 06:10 Alkaline Phosphatase 36 U/L (34-104) 02/08/19 06:10 Creatine Kinase 15 U/L (30-223) L 02/07/19 18:25 Troponin I < 0.01 ng/mL (0.01-0.05) L 02/07/19 18:25 Total Protein 6.0 gm/dL (6.0-8.3) 02/08/19 06:10 Albumin 3.8 gm/dL (3.7-5.3) 02/08/19 06:10 Globulin 2.2 gm/dL 02/08/19 06:10 Albumin/Globulin Ratio 1.7 (1.0-1.8) 02/08/19 06:10 Triglycerides 30 mg/dL (<150) 02/08/19 06:10 Cholesterol 127 mg/dL (<200) 02/08/19 06:10 LDL Cholesterol Direct 48 mg/dL (75-193) L 02/08/19 06:10 HDL Cholesterol 61 mg/dL (23-92) 02/08/19 06:10 TSH 6.90 uIU/ml (0.34-5.60) H 02/08/19 06:10 Serum , Qual NEGATIVE (NEGATIVE) 02/07/19 18:25 - Physical Exam Vitals and I&O: Vital Signs Temp 98 F 02/11/19 04:00 Pulse 83 02/11/19 04:00 Resp 20 02/11/19 08:00 BP 117/82 02/11/19 04:00 Pulse Ox 94 02/11/19 04:00 Intake & Output 02/10/19 02/11/19 02/11/19 18:59 06:59 18:59 Intake Total 1030 50 Balance 1030 50 Weight (lbs) 39.463 kg 38.465 kg Intake: Intake, IV Amount 1000 D5-0.45NS 1,000 ml @ 75 1000 mls/hr IV .[id number] PENDING SALE TO [facility] Rx #:[id number] Oral 30 50 Other: # Voids 2 3 # Bowel Movements 1 0 Stool Characteristics Soft Soft Soft Weight Source Bedscale Bedscale Active Medications: Current Medications Bisacodyl (Dulcolax 10 Mg Supp) 10 mg RC DAILY [facility] Stop: 04/09/19 11:29 Last Admin: 02/11/19 08:25 Dose: Not Given Divalproex Sodium (Depakote Dr) 500 mg PO BID [facility]; Protocol Stop: 04/10/19 09:14 Docusate Sodium (Colace) 250 mg PO BID [facility] Stop: 04/09/19 16:59 Last Admin: 02/11/19 08:38 Dose: 250 mg Dextrose/Sodium Chloride (D5-0.45ns) 1,000 mls @ 75 mls/hr IV .[id number] [facility] Stop: 04/08/19 21:52 Last Admin: 02/11/19 08:39 Dose: 75 mls/hr Levofloxacin (Levaquin Pb) 500 mg in 100 mls @ 100 mls/hr IV Q24HR [facility] Stop: 04/08/19 21:52 Last Admin: 02/10/19 20:57 Dose: 100 mls/hr Lactobacillus Rhamnosus (Culturelle 15b) 1 each PO DAILY [facility] Stop: 04/10/19 11:59 Last Admin: 02/11/19 08:38 Dose: 1 each Lamotrigine (Lamictal) 75 mg PO DAILY [facility]; Protocol Stop: 04/10/19 09:14 Megestrol Acetate (Megace) 400 mg PO BID [facility] Stop: 04/10/19 09:59 Last Admin: 02/11/19 08:38 Dose: 400 mg Metoclopramide HCl (Reglan) 5 mg PO ACHS [facility] Stop: 04/10/19 11:29 Last Admin: 02/11/19 10:36 Dose: 5 mg Mineral Oil (Mineral Oil 30 Ml) 30 ml PO DAILY PRN PRN Reason: Constipation Stop: 04/09/19 17:29 Miscellaneous (Probiotic Screen) 1 ea MC PRN PRN PRN Reason: PROTOCOL Stop: 04/10/19 09:08 Pantoprazole Sodium (Protonix) 40 mg IVP DAILY PENDING SALE TO [facility] Stop: 04/09/19 08:59 Last Admin: 02/11/19 08:38 Dose: 40 mg Polyethylene Glycol (Miralax) 17 gm PO BID PENDING SALE TO [facility] Stop: 04/12/19 16:59 Sodium Phosphate (Fleet Enema) 135 ml RC PRN PRN PRN Reason: Constipation Stop: 04/08/19 21:52 General: Alert, No acute distress HEENT: Atraumatic, Mucous membr. moist/pink Neck: Supple, +2 carotid pulse wo bruit Cardiovascular: Regular rate, Normal S1, Normal S2 Lungs: Clear to auscultation Abdomen: Bowel sounds, Soft, no Tender, no Hepatomegaly, no Rebound, no Mass, no Guarding, no Drain Extremities: no Edema Neurological: Sensation intact Skin: no Rash Psych/Mental Status: Mood NL - Procedures Procedures: Procedures Procedure Code Date EMERGENCY DEPT VISIT 12614 12/04/11 INJECT/INFUSE NEC 99.29 04/22/09 Assessment/Plan - Assessment Assessment: 1, Fecal impaction/Constipation 2. Abdominal pain Plan: 1. Fecal impaction/Constipation. iMPROVING - Current regimen is colace, dulcolax, and mineral oil. Will add miralax on a schedule bid dosing - Enema prn 2. Abdominal pain Secondary to above Resolved
--- NOTE | 2019-02-11 13:51 | General Progress Note ---
Subjective - Review of Systems Service Date: 02/11/19 Subjective: awake, quiet Objective - Results Result Diagrams: 02/11/19 06:05 02/11/19 06:05 Recent Labs: Laboratory Last Values WBC 10.1 Th/cmm (4.8-10.8) 02/11/19 06:05 RBC 3.78 Mil/cmm (3.80-5.10) L 02/11/19 06:05 Hgb 12.5 gm/dL (12-16) 02/11/19 06:05 Hct 36.7 % (41.0-60) L 02/11/19 06:05 MCV 97.1 fl (81-100) 02/11/19 06:05 MCH 33.2 pg (27.0-31.0) H 02/11/19 06:05 MCHC Differential 34.1 pg (28.0-36.0) 02/11/19 06:05 RDW 12.4 % (11.5-20.0) 02/11/19 06:05 Plt Count 146 Th/cmm (150-400) L 02/11/19 06:05 MPV 7.9 fl 02/11/19 06:05 Add Manual Diff YES 02/10/19 05:10 Neutrophils % 70.1 % (40.0-80.0) 02/11/19 06:05 Band Neutrophils % 3 % (0-10) 02/10/19 05:10 Lymphocytes % 17.1 % (20.0-50.0) L 02/11/19 06:05 Monocytes % 12.0 % (2.0-10.0) H 02/11/19 06:05 Eosinophils % 0.8 % (0.0-5.0) 02/11/19 06:05 Basophils % 0.0 % (0.0-2.0) 02/11/19 06:05 Neutrophils (Manual) 50 % (40-80) 02/10/19 05:10 Lymphocytes 33 % (20-50) 02/10/19 05:10 Monocytes 12 % (2-10) H 02/10/19 05:10 Eosinophils 1 % (0-5) 02/10/19 05:10 Basophils 0 % (0-3) 02/10/19 05:10 Platelet Estimate ADEQUATE (NORMAL) 02/09/19 05:45 PT 10.1 SECONDS (9.5-11.5) 02/07/19 18:25 INR 0.97 (0.5-1.4) 02/07/19 18:25 PTT (Actin FS) 24.8 SECONDS (26.0-38.0) L 02/07/19 18:25 Sodium 137 mEq/L (136-145) 02/11/19 06:05 Potassium 3.9 mEq/L (3.5-5.1) 02/11/19 06:05 Chloride 108 mEq/L (98-107) H 02/11/19 06:05 Carbon Dioxide 22.7 mEq/L (21.0-31.0) 02/11/19 06:05 Anion Gap 10.2 (7.0-16.0) 02/11/19 06:05 BUN 7 mg/dL (7-25) 02/11/19 06:05 Creatinine 0.3 mg/dL (0.6-1.2) L 02/11/19 06:05 Est GFR ( Amer) > 60.0 ml/min (>90) 02/11/19 06:05 Est GFR (Non-Af Amer) > 60.0 ml/min 02/11/19 06:05 BUN/Creatinine Ratio 23.3 02/11/19 06:05 Glucose 106 mg/dL (70-105) H 02/11/19 06:05 POC Glucose 119 MG/DL (70 - 105) H 02/08/19 18:35 Whole Bld Lactic Acid 1.20 mmol/L (0.60-1.99) 02/07/19 18:25 Calcium 9.0 mg/dL (8.6-10.3) 02/11/19 06:05 Magnesium 2.7 mg/dL (1.9-2.7) 02/09/19 05:45 Total Bilirubin 0.2 mg/dL (0.3-1.0) L 02/08/19 06:10 AST 13 U/L (13-39) 02/08/19 06:10 ALT 6 U/L (7-52) L 02/08/19 06:10 Alkaline Phosphatase 36 U/L (34-104) 02/08/19 06:10 Creatine Kinase 15 U/L (30-223) L 02/07/19 18:25 Troponin I < 0.01 ng/mL (0.01-0.05) L 02/07/19 18:25 Total Protein 6.0 gm/dL (6.0-8.3) 02/08/19 06:10 Albumin 3.8 gm/dL (3.7-5.3) 02/08/19 06:10 Globulin 2.2 gm/dL 02/08/19 06:10 Albumin/Globulin Ratio 1.7 (1.0-1.8) 02/08/19 06:10 Triglycerides 30 mg/dL (<150) 02/08/19 06:10 Cholesterol 127 mg/dL (<200) 02/08/19 06:10 LDL Cholesterol Direct 48 mg/dL (75-193) L 02/08/19 06:10 HDL Cholesterol 61 mg/dL (23-92) 02/08/19 06:10 TSH 6.90 uIU/ml (0.34-5.60) H 02/08/19 06:10 Serum , Qual NEGATIVE (NEGATIVE) 02/07/19 18:25 - Physical Exam Vitals and I&O: Vital Signs Temp 96.8 F 02/11/19 12:00 Pulse 88 02/11/19 12:00 Resp 19 02/11/19 12:00 BP 130/62 02/11/19 12:00 Pulse Ox 99 02/11/19 12:00 Intake & Output 02/10/19 02/11/19 02/11/19 18:59 06:59 18:59 Intake Total 1030 50 Balance 1030 50 Weight (lbs) 39.463 kg 38.465 kg Intake: Intake, IV Amount 1000 D5-0.45NS 1,000 ml @ 75 1000 mls/hr IV .[id number] [facility] Rx #:[id number] Oral 30 50 Other: # Voids 2 3 # Bowel Movements 1 0 Stool Characteristics Soft Soft Soft Weight Source Bedscale Bedscale Active Medications: Current Medications Bisacodyl (Dulcolax 10 Mg Supp) 10 mg RC DAILY [facility] Stop: 04/09/19 11:29 Last Admin: 02/11/19 08:25 Dose: Not Given Divalproex Sodium (Depakote Dr) 500 mg PO BID [facility]; Protocol Stop: 04/10/19 09:14 Docusate Sodium (Colace) 250 mg PO BID [facility] Stop: 04/09/19 16:59 Last Admin: 02/11/19 08:38 Dose: 250 mg Dextrose/Sodium Chloride (D5-0.45ns) 1,000 mls @ 75 mls/hr IV .[id number] [facility] Stop: 04/08/19 21:52 Last Admin: 02/11/19 08:39 Dose: 75 mls/hr Levofloxacin (Levaquin Pb) 500 mg in 100 mls @ 100 mls/hr IV Q24HR [facility] Stop: 04/08/19 21:52 Last Admin: 02/10/19 20:57 Dose: 100 mls/hr Lactobacillus Rhamnosus (Culturelle 15b) 1 each PO DAILY [facility] Stop: 04/10/19 11:59 Last Admin: 02/11/19 08:38 Dose: 1 each Lamotrigine (Lamictal) 75 mg PO DAILY [facility]; Protocol Stop: 04/10/19 09:14 Megestrol Acetate (Megace) 400 mg PO BID [facility] Stop: 04/10/19 09:59 Last Admin: 02/11/19 08:38 Dose: 400 mg Metoclopramide HCl (Reglan) 5 mg PO ACHS [facility] Stop: 04/10/19 11:29 Last Admin: 02/11/19 10:36 Dose: 5 mg Mineral Oil (Mineral Oil 30 Ml) 30 ml PO DAILY PRN PRN Reason: Constipation Stop: 04/09/19 17:29 Miscellaneous (Probiotic Screen) 1 ea MC PRN PRN PRN Reason: PROTOCOL Stop: 04/10/19 09:08 Pantoprazole Sodium (Protonix) 40 mg IVP DAILY [facility] Stop: 04/09/19 08:59 Last Admin: 02/11/19 08:38 Dose: 40 mg Polyethylene Glycol (Miralax) 17 gm PO BID [facility] Stop: 04/12/19 16:59 Sodium Phosphate (Fleet Enema) 135 ml RC PRN PRN PRN Reason: Constipation Stop: 04/08/19 21:52 General: Alert, No acute distress HEENT: Atraumatic, Mucous membr. moist/pink Neck: Supple, +2 carotid pulse wo bruit Cardiovascular: Regular rate, Normal S1, Normal S2 Lungs: Clear to auscultation Abdomen: Bowel sounds, Soft, no Tender, no Hepatomegaly, no Rebound, no Mass, no Guarding, no Drain Extremities: no Edema Neurological: Sensation intact Skin: no Rash Psych/Mental Status: Mood NL - Procedures Procedures: Procedures Procedure Code Date EMERGENCY DEPT VISIT 12401 12/04/11 INJECT/INFUSE NEC 99.29 04/22/09 Assessment/Plan - Assessment Assessment: Fecal Impaction Abd Distension/Pain Profound Intel Disability Functional quad S/P CVA Severe Scoliosis - Plan Plan: Lab - Result Diagrams 02/10/19 05:10 02/10/19 05:10 Current Medications Bisacodyl (Dulcolax 10 Mg Supp) 10 mg RC DAILY [facility] Stop: 04/09/19 11:29 Last Admin: 02/10/19 08:47 Dose: Not Given Divalproex Sodium (Depakote Dr) 500 mg PO BID [facility]; Protocol Stop: 04/10/19 09:14 Docusate Sodium (Colace) 250 mg PO BID [facility] Stop: 04/09/19 16:59 Last Admin: 02/10/19 08:50 Dose: 250 mg Dextrose/Sodium Chloride (D5-0.45ns) 1,000 mls @ 75 mls/hr IV .[id number] [facility] Stop: 04/08/19 21:52 Last Admin: 02/09/19 21:33 Dose: 75 mls/hr Levofloxacin (Levaquin Pb) 500 mg in 100 mls @ 100 mls/hr IV Q24HR [facility] Stop: 04/08/19 21:52 Last Admin: 02/09/19 21:31 Dose: 100 mls/hr Lactobacillus Rhamnosus (Culturelle 15b) 1 each PO DAILY [facility] Stop: 04/10/19 11:59 Last Admin: 02/10/19 08:50 Dose: 1 each Lamotrigine (Lamictal) 75 mg PO DAILY [facility]; Protocol Stop: 04/10/19 09:14 Megestrol Acetate (Megace) 400 mg PO BID [facility] Stop: 04/10/19 09:59 Last Admin: 02/10/19 08:50 Dose: 400 mg Metoclopramide HCl (Reglan) 5 mg PO ACHS [facility] Stop: 04/10/19 11:29 Last Admin: 02/10/19 11:23 Dose: 5 mg Mineral Oil (Mineral Oil 30 Ml) 30 ml PO DAILY PRN PRN Reason: Constipation Stop: 04/09/19 17:29 Miscellaneous (Probiotic Screen) 1 ea MC PRN PRN PRN Reason: PROTOCOL Stop: 04/10/19 09:08 Pantoprazole Sodium (Protonix) 40 mg IVP DAILY [facility] Stop: 04/09/19 08:59 Last Admin: 02/10/19 08:50 Dose: 40 mg Sodium Phosphate (Fleet Enema) 135 ml RC PRN PRN PRN Reason: Constipation Stop: 04/08/19 21:52 Lab - Result Diagrams 02/10/19 05:10 02/10/19 05:10 Pt. had 1 BM continue laxatives prn on IVF encourage po intake Nutritional Asmnt/Malnutr-PDOC - Dietary Evaluation Malnutrition Findings (Please click <Entered> for more info): Nutritional Asmnt/Malnutrition Start: 02/08/19 15: 26 Text: Status: Complete Freq: Protocol: Document 02/08/19 15:29 LCHENG (Rec: 02/08/19 15:58 LCHENG [email or web address]) Nutritional Asmnt/Malnutrition Patient General Information Nutritional Screening High Risk Diagnosis abdominal distention and congestion Pertinent Medical Hx/Surgical Hx dyslipidemia, seizure, dementia Subjective Information Pt seen lying in bed, confused . Per nurse pt was not eating at [facility]. Pt is on NPO status. Current Diet Order/ Nutrition Support NPO Pertinent Medications D5-0.45ns, colace, levaquin, reglan, protonix Pertinent Labs 5/2 Cr 0.4, Mg 1.7 Nutritional Hx/Data Height 1.47 m Height (Calculated Centimeters) 147.3 Current Weight (lbs) 34.927 kg Weight (Calculated Kilograms) 34.9 Weight (Calculated Grams) 33124.6 [place] Body Weight 96 Body Mass Index (BMI) 16.0 Weight Status Underweight GI Symptoms GI Symptoms None Last BM 5/2 Difficult in: None Skin Integrity/Comment: intact lucy 9 Current %PO Negligible < 25% Estimated Nutritional Goals BEE in Kcals: Using Current wt Calories/Kcals/Kg 30-35 Kcals Calculated 7258-7279 Protein: Using Current wt Protein g/k.2-1.4 Protein Calculated 42-49 Fluid: ml 1050-1225ml (1ml/kcal) Nutritional Problem No current Nutrition Prob Problem N/A Malnutrition Related to Morbid Obesity Malnutrition related to morbid obesity No Intervention/Recommendation Comments 1. Monitor NPO stauts. Start oral diet when medically approriate. Reconmend swallow eval as needed. 2. Monitor PO intake, wt, labs and skin integrity 3. F/U as high risk in 2-3 days Expected Outcomes/Goals Expected Outcomes/Goals 1. PO intake to meet at least 75% of nutritional needs. 2. Wt stability, skin to remain intact, labs to approach WNL.
[2019-02-11] MEDS: POLYETHYLENE GLYCOL 3350 17 GM PACK PO SCH (16:19)
[2019-02-11] MEDS: Levofloxacin 500mg/100mL 500 MG/100 ML BAG IV SCH (22:26)
[2019-02-12] MEDS: Lactobacillus Rhamnosus GG 15 Billion CFU CAP.SPRINK PO SCH (09:03)
[2019-02-12] MEDS: POLYETHYLENE GLYCOL 3350 17 GM PACK PO SCH ×2 (09:04→17:06)
--- NOTE | 2019-02-12 09:23 | Internal Medicine Prog Note ---
Internal Medicine Subjective - Subjective Service Date: 02/12/19 (AWAKE, LESS LETHARTGIC. HAD SMALL SEIZURE LAST NIGHT. EATING POORLY (ABOUT 25%).) Patient is:: awake Patient Complaints of:: constipation Per staff patient has:: no adverse event Internal Medicine Objective - Results Result Diagrams: 02/11/19 06:05 02/11/19 06:05 Recent Labs: Laboratory Last Values WBC 10.1 Th/cmm (4.8-10.8) 02/11/19 06:05 RBC 3.78 Mil/cmm (3.80-5.10) L 02/11/19 06:05 Hgb 12.5 gm/dL (12-16) 02/11/19 06:05 Hct 36.7 % (41.0-60) L 02/11/19 06:05 MCV 97.1 fl (81-100) 02/11/19 06:05 MCH 33.2 pg (27.0-31.0) H 02/11/19 06:05 MCHC Differential 34.1 pg (28.0-36.0) 02/11/19 06:05 RDW 12.4 % (11.5-20.0) 02/11/19 06:05 Plt Count 146 Th/cmm (150-400) L 02/11/19 06:05 MPV 7.9 fl 02/11/19 06:05 Add Manual Diff YES 02/10/19 05:10 Neutrophils % 70.1 % (40.0-80.0) 02/11/19 06:05 Band Neutrophils % 3 % (0-10) 02/10/19 05:10 Lymphocytes % 17.1 % (20.0-50.0) L 02/11/19 06:05 Monocytes % 12.0 % (2.0-10.0) H 02/11/19 06:05 Eosinophils % 0.8 % (0.0-5.0) 02/11/19 06:05 Basophils % 0.0 % (0.0-2.0) 02/11/19 06:05 Neutrophils (Manual) 50 % (40-80) 02/10/19 05:10 Lymphocytes 33 % (20-50) 02/10/19 05:10 Monocytes 12 % (2-10) H 02/10/19 05:10 Eosinophils 1 % (0-5) 02/10/19 05:10 Basophils 0 % (0-3) 02/10/19 05:10 Platelet Estimate ADEQUATE (NORMAL) 02/09/19 05:45 PT 10.1 SECONDS (9.5-11.5) 02/07/19 18:25 INR 0.97 (0.5-1.4) 02/07/19 18:25 PTT (Actin FS) 24.8 SECONDS (26.0-38.0) L 02/07/19 18:25 Sodium 137 mEq/L (136-145) 02/11/19 06:05 Potassium 3.9 mEq/L (3.5-5.1) 02/11/19 06:05 Chloride 108 mEq/L (98-107) H 02/11/19 06:05 Carbon Dioxide 22.7 mEq/L (21.0-31.0) 02/11/19 06:05 Anion Gap 10.2 (7.0-16.0) 02/11/19 06:05 BUN 7 mg/dL (7-25) 02/11/19 06:05 Creatinine 0.3 mg/dL (0.6-1.2) L 02/11/19 06:05 Est GFR ( Amer) > 60.0 ml/min (>90) 02/11/19 06:05 Est GFR (Non-Af Amer) > 60.0 ml/min 02/11/19 06:05 BUN/Creatinine Ratio 23.3 02/11/19 06:05 Glucose 106 mg/dL (70-105) H 02/11/19 06:05 POC Glucose 119 MG/DL (70 - 105) H 02/08/19 18:35 Whole Bld Lactic Acid 1.20 mmol/L (0.60-1.99) 02/07/19 18:25 Calcium 9.0 mg/dL (8.6-10.3) 02/11/19 06:05 Magnesium 2.7 mg/dL (1.9-2.7) 02/09/19 05:45 Total Bilirubin 0.2 mg/dL (0.3-1.0) L 02/08/19 06:10 AST 13 U/L (13-39) 02/08/19 06:10 ALT 6 U/L (7-52) L 02/08/19 06:10 Alkaline Phosphatase 36 U/L (34-104) 02/08/19 06:10 Creatine Kinase 15 U/L (30-223) L 02/07/19 18:25 Troponin I < 0.01 ng/mL (0.01-0.05) L 02/07/19 18:25 Total Protein 6.0 gm/dL (6.0-8.3) 02/08/19 06:10 Albumin 3.8 gm/dL (3.7-5.3) 02/08/19 06:10 Globulin 2.2 gm/dL 02/08/19 06:10 Albumin/Globulin Ratio 1.7 (1.0-1.8) 02/08/19 06:10 Triglycerides 30 mg/dL (<150) 02/08/19 06:10 Cholesterol 127 mg/dL (<200) 02/08/19 06:10 LDL Cholesterol Direct 48 mg/dL (75-193) L 02/08/19 06:10 HDL Cholesterol 61 mg/dL (23-92) 02/08/19 06:10 TSH 6.90 uIU/ml (0.34-5.60) H 02/08/19 06:10 Serum , Qual NEGATIVE (NEGATIVE) 02/07/19 18:25 - Physical Exam Vitals and I&O: Vital Signs Temp 98.1 F 02/12/19 08:00 Pulse 80 02/12/19 08:00 Resp 20 02/12/19 08:00 BP 98/54 02/12/19 08:00 Pulse Ox 96 02/12/19 08:00 Intake & Output 02/11/19 02/12/19 02/12/19 18:59 06:59 18:59 Intake Total 125 1000 Balance 125 1000 Weight (lbs) 38.465 kg 38.691 kg Intake: Intake, IV Amount 1000 D5-0.45NS 1,000 ml @ 75 1000 mls/hr IV .[id number] [facility] Rx #:[id number] Oral 125 Other: # Voids 3 3 # Bowel Movements 1 0 Stool Characteristics Soft Soft Weight Source Bedscale Bedscale Active Medications: Current Medications Bisacodyl (Dulcolax 10 Mg Supp) 10 mg RC DAILY [facility] Stop: 04/09/19 11:29 Last Admin: 02/12/19 09:04 Dose: 10 mg Divalproex Sodium (Depakote Dr) 500 mg PO BID [facility]; Protocol Stop: 04/10/19 20:59 Last Admin: 02/12/19 09:03 Dose: 500 mg Docusate Sodium (Colace) 250 mg PO BID [facility] Stop: 04/09/19 16:59 Last Admin: 02/12/19 09:03 Dose: 250 mg Dextrose/Sodium Chloride (D5-0.45ns) 1,000 mls @ 75 mls/hr IV .[id number] [facility] Stop: 04/08/19 21:52 Last Admin: 02/11/19 22:24 Dose: 75 mls/hr Levofloxacin (Levaquin Pb) 500 mg in 100 mls @ 100 mls/hr IV Q24HR [facility] Stop: 04/08/19 21:52 Last Admin: 02/11/19 22:26 Dose: 100 mls/hr Lactobacillus Rhamnosus (Culturelle 15b) 1 each PO DAILY [facility] Stop: 04/10/19 11:59 Last Admin: 02/12/19 09:03 Dose: 1 each Lamotrigine (Lamictal) 75 mg PO DAILY [facility]; Protocol Stop: 04/10/19 09:14 Last Admin: 02/12/19 09:03 Dose: 75 mg Lorazepam (Ativan) 1 mg IVP Q2H PRN; Protocol PRN Reason: Agitation/seizure Stop: 04/12/19 23:29 Last Admin: 02/11/19 23:38 Dose: 1 mg Megestrol Acetate (Megace) 400 mg PO BID [facility] Stop: 04/10/19 09:59 Last Admin: 02/12/19 09:03 Dose: 400 mg Metoclopramide HCl (Reglan) 5 mg PO ACHS [facility] Stop: 04/10/19 11:29 Last Admin: 02/12/19 07:01 Dose: 5 mg Mineral Oil (Mineral Oil 30 Ml) 30 ml PO DAILY PRN PRN Reason: Constipation Stop: 04/09/19 17:29 Miscellaneous (Probiotic Screen) 1 ea MC PRN PRN PRN Reason: PROTOCOL Stop: 04/10/19 09:08 Pantoprazole Sodium (Protonix) 40 mg IVP DAILY [facility] Stop: 04/09/19 08:59 Last Admin: 02/12/19 09:03 Dose: 40 mg Polyethylene Glycol (Miralax) 17 gm PO BID [facility] Stop: 04/12/19 16:59 Last Admin: 02/12/19 09:04 Dose: 17 gm Sodium Phosphate (Fleet Enema) 135 ml RC PRN PRN PRN Reason: Constipation Stop: 04/08/19 21:52 General: NAD HEENT: NC/AT, PERRLA, EOMI Neck: Supple, No JVD, No LAD Lungs: CTAB Cardiovascular: RRR, Normal S1, Normal S2, without murmur Abdomen: soft, non-tender, positive bowel sound, no distended Extremities: clear Neurological: no change - Procedures Procedures: Procedures Procedure Code Date EMERGENCY DEPT VISIT 73118 12/04/11 INJECT/INFUSE NEC 99.29 04/22/09 Internal Medicine Assmt/Plan - Assessment Assessment: FEVER, R/O SEPSIS. DDX INCLUDES UTI, GI SOURCE vs PULM SOURCE. CONSTIPATION/ILEUS-clinically improving. UTI. CONGESTION, r/o pna-aspiratIion vs bronchitis-clinically improving. HISTORY OF MR, QUADRIPILGIA,, DEMENTIA, SEIZURE D/O. - Plan Plan: CONT WITH CURRENT MED SUPPORTIVE CARE AND MGT CONT WITH IVF, IV ABXS, FOLLOW UC/S CONT WITH CURRENT DIET TOLERATED CONT WITH CURRENT BOWEL REGIMEN CONT WITH OTHER MEDS SCHEDULED RE-CK KUB Nutritional Asmnt/Malnutr-PDOC - Dietary Evaluation Malnutrition Findings (Please click <Entered> for more info): Nutritional Asmnt/Malnutrition Start: 02/08/19 15: 26 Text: Status: Complete Freq: Protocol: Document 02/08/19 15:29 LCHENG (Rec: 02/08/19 15:58 LCHENG [email or web address]) Nutritional Asmnt/Malnutrition Patient General Information Nutritional Screening High Risk Diagnosis abdominal distention and congestion Pertinent Medical Hx/Surgical Hx dyslipidemia, seizure, dementia Subjective Information Pt seen lying in bed, confused . Per nurse pt was not eating at [facility]. Pt is on NPO status. Current Diet Order/ Nutrition Support NPO Pertinent Medications D5-0.45ns, colace, levaquin, reglan, protonix Pertinent Labs 5/2 Cr 0.4, Mg 1.7 Nutritional Hx/Data Height 1.47 m Height (Calculated Centimeters) 147.3 Current Weight (lbs) 34.927 kg Weight (Calculated Kilograms) 34.9 Weight (Calculated Grams) 81125.6 [place] Body Weight 96 Body Mass Index (BMI) 16.0 Weight Status Underweight GI Symptoms GI Symptoms None Last BM 5/2 Difficult in: None Skin Integrity/Comment: intact lucy 9 Current %PO Negligible < 25% Estimated Nutritional Goals BEE in Kcals: Using Current wt Calories/Kcals/Kg 30-35 Kcals Calculated 5237-3147 Protein: Using Current wt Protein g/k.2-1.4 Protein Calculated 42-49 Fluid: ml 1050-1225ml (1ml/kcal) Nutritional Problem No current Nutrition Prob Problem N/A Malnutrition Related to Morbid Obesity Malnutrition related to morbid obesity No Intervention/Recommendation Comments 1. Monitor NPO stauts. Start oral diet when medically approriate. Reconmend swallow eval as needed. 2. Monitor PO intake, wt, labs and skin integrity 3. F/U as high risk in 2-3 days Expected Outcomes/Goals Expected Outcomes/Goals 1. PO intake to meet at least 75% of nutritional needs. 2. Wt stability, skin to remain intact, labs to approach WNL.
--- NOTE | 2019-02-12 11:30 | Diagnostic Imaging Report ---
KUB abdominal film HISTORY: Pain There is a nonspecific gas pattern of nondilated bowel. No free intraperitoneal air. Severe scoliosis of the thoracolumbar spine convexity to the left. IMPRESSION: 1. Nonspecific bowel gas pattern with no acute radiographic abnormalities 2. Severe scoliosis
[2019-02-13] MEDS ORDERED: Levothyroxine 0.025 Mg Tab PO SCH (07:30)
--- NOTE | 2019-02-15 15:05 | Discharge Summary ---
DATE OF DISCHARGE: 02/12/2019 ADMITTING DIAGNOSES: 1. Fever, rule out sepsis. Differential including pneumonia including aspiration pneumonia versus urinary tract infection versus gastrointestinal source. 2. Congestion rule out pneumonia versus early bronchitis. 3. Abdominal distention, possibly constipation/ileus. SECONDARY DIAGNOSES: Includes history of mental retardation, quadriplegia, history of CVA, severe scoliosis, dementia, also previous histories of pneumonia, and history of seizure disorder. DISCHARGE DIAGNOSES: 1. Fever, rule out sepsis -- clinically stable. Workup negative. 2. Pulmonary congestion, rule out pneumonia versus bronchitis -- clinically improved with no evidence of pneumonia. 3. Constipation/ileus -- clinically improved. 4. Urinary tract infection. CONSULTANTS: GI, Dr. Pisano. MAJOR PROCEDURES: There were no major procedures done during this admission. BRIEF HOSPITAL COURSE: This is a 38-year-old female, resident [place] [facility] with a medical history significant for severe mental retardation, quadriplegia, CVA, severe scoliosis, dementia, seizure disorder who in the past has been admitted for pneumonia and UTIs. She presented [facility] the [facility] with congestion and abdominal distension for a couple of days. In the ER, pertinent findings included a KUB showing stool filled nondilated descending colon and rectum with nonspecific appearance. She also had a noticeable congestion, but an x-ray was essentially negative. The patient was admitted to the medical floor, placed on IV fluids, was made n.p.o., was started on IV antibiotics and pulmonary supportive care. On admission, her labs were essentially within normal limits and vital signs were also noted to be stable (no fevers noted). Given her KUB findings the patient was placed on a bowel regimen and GI consult was asked for further management and care. By hospital day #2, nursing staff reported a large bowel movement with improvement of her abdominal distention as well as her congestion. A repeat KUB done on the 3rd showed nonspecific bowel gas pattern with no acute radiographic abnormalities. The patient at that time was also started on a soft bland diet with no vomiting reported. Her appetite was somewhat poor at the beginning, but by 02/12/2019 the patient was eating about half of her meals. Again, her abdominal distention and her congestion did improve as the days went by. Blood cultures remained negative throughout her hospital stay and her other labs were also basically within normal limits. CONDITION ON DISCHARGE: Stable. DISCHARGE MEDICATIONS: Dulcolax suppository 10 mg every day p.r.n. for constipation, Depakote 500 b.i.d., Colace 250 b.i.d., Levaquin 500 mg p.o. every day x 10 days, Lamictal 75 every day, Megace 400 mg b.i.d. Reglan 5 mg p.o. with meals, and Protonix 40 mg every day. DISPOSITION: The patient was discharged to the [facility] and care where she resides under the care of her primary care doctor (Dr. Serrano.) [facility]# [id number] MTDD
== END 2019-02-12 18:05 | disposition home or self-care (01) | DRG 391 ==
LOC: ER 17:37 → MSI 21:26
PROVIDERS: ADMIT Internal Medicine; ATTEND Internal Medicine
DX: K59.00 Constipation, unspecified (principal); R53.2 Functional quadriplegia; N39.0 Urinary tract infection, site not specified; K56.7 Ileus, unspecified; E87.1 Hypo-osmolality and hyponatremia; F72 Severe intellectual disabilities; F03.90 Unspecified dementia, unspecified severity, without behavioral disturbance, psychotic disturbance, mood disturbance, and anxiety; E78.5 Hyperlipidemia, unspecified; R09.89 Other specified symptoms and signs involving the circulatory and respiratory systems; E86.0 Dehydration; I95.9 Hypotension, unspecified; M41.9 Scoliosis, unspecified; Z86.73 Personal history of transient ischemic attack (TIA), and cerebral infarction without residual deficits; Z79.899 Other long term (current) drug therapy; Z87.01 Personal history of pneumonia (recurrent); Z87.440 Personal history of urinary (tract) infections; Z82.49 Family history of ischemic heart disease and other diseases of the circulatory system
CPT/HCPCS: 36415-UA; 71045-TC; 74000-TC; 80048-TC; 80053-TC; 80061-TC; 82550-TC; 82948-90; 83605; 83735-TC; 84443-TC; 84484-TC; 84703-TC; 85007-TC; 85025-TC; 85610-TC; 85730-TC; 93005; 94760; C9113; J1956; J2060; J2765; J3475; Z7610